=== PATIENT | female | born 1960 | race Caucasian/White ===

== ENCOUNTER → 2022-09-27 09:26 | Outpatient (BNVA) | payer OTHER, SELFPAY | PROVIDERS: PCP Internal Medicine; Visit Provider Nurse Practitioner Family | DX: R51.9 Headache, unspecified (principal); M54.2 Cervicalgia; G47.9 Sleep disorder, unspecified; G47.19 Other hypersomnia; R06.83 Snoring | CPT/HCPCS: 99202 ==

== ENCOUNTER → 2022-11-22 16:02 | Outpatient (REF) | payer OTHER, SELFPAY | LOC: HO.SL 16:02 | PROVIDERS: PCP Internal Medicine; Visit Provider Nurse Practitioner Family | DX: G47.19 Other hypersomnia (principal); G47.9 Sleep disorder, unspecified; R06.83 Snoring | CPT/HCPCS: 95806 ==

== ENCOUNTER → 2023-01-24 14:23 | Outpatient (BNVA) | payer OTHER, SELFPAY | PROVIDERS: PCP Internal Medicine; Visit Provider Nurse Practitioner Family | DX: G47.9 Sleep disorder, unspecified (principal); R51.9 Headache, unspecified; M54.2 Cervicalgia | CPT/HCPCS: 99212 ==

== ENCOUNTER → 2023-05-06 09:26 | Outpatient (BNVA) | payer OTHER, SELFPAY | PROVIDERS: PCP Internal Medicine; Visit Provider Nurse Practitioner Family | DX: R51.9 Headache, unspecified (principal); G47.9 Sleep disorder, unspecified; M54.2 Cervicalgia | CPT/HCPCS: 99212 ==

== ENCOUNTER 2023-08-20 09:08 | Outpatient (AMB) | payer OTHER, SELFPAY ==
--- NOTE | 2023-08-20 09:12 | A.OFFVIS_ITS ---
Intake Vital Signs 08/20/23 09:13 Height 5 ft 2 in Weight 197 lb BMI 36.0 BP 124/70 Blood Pressure Location Rt brachial Position Sitting Pulse 82 Pulse Source Pulse Oximeter Pulse Oximetry (%) 97 Oxygen Delivery Method Room Air Intake Visit Reasons: 3m follow up migraines-LVM Intake Note: Patient presents for 3month follow up migraines.Patient states not any better, I'm getting them more frequent at least 4 times a week. Allergies tramadol Adverse Reaction (Intermediate, Verified 08/20/23 09:15) Rash ibuprofen Adverse Reaction (Mild, Verified 08/20/23 09:15) Rash Medication List - Last Reconciled 08/20/23 by SHANIKA Gutiérrez acetaminophen (Tylenol) 650 mg PO Q6H PRN albuterol sulfate 90 mcg/actuation (ProAir HFA) 2 puffs inhalation Q4-6H PRN albuterol sulfate 2.5 mg inhalation Q4-6H PRN alcohol swabs (Alcohol Wipes) pad topical amitriptyline 10 mg PO BEDTIME 30 days amlodipine 5 mg PO DAILY atorvastatin 40 mg PO DAILY baclofen 10 - 20 mg (1 - 2 x 10 mg) PO BEDTIME 30 days blood sugar diagnostic (FreeStyle Lite Strips) As directed blood sugar diagnostic (FreeStyle Lite Strips) As directed blood-glucose meter (Freestyle [employer] meter) As directed buspirone 15 mg PO TID [id number]-pobxnorioloyq-icxt 50-300-40 mg 1 cap PO Q6H PRN calcium carbonate-vitamin D3 500 mg-15 mcg (600 unit) (Os-Freddie 500 + D3) 600 tabs PO BID cholecalciferol (vitamin D3) 25 mcg PO DAILY clonazepam 0.5 mg PO DAILY PRN diclofenac sodium 1% 2 grams topical DAILY PRN dulaglutide (Trulicity) 1.5 mg subcut QWEEK fluticasone propion-salmeterol 250-50 mcg/dose (Advair Diskus) 1 inh inhalation BID fluticasone propionate 50 mcg/actuation (Allergy Relief (fluticasone)) 2 sprays intranasal DAILY gabapentin 1,200 mg PO BID inhalational spacing device (Ranjith Aerosol [place] Enhancer spacer) As directed lancets (FreeStyle Lancets) As directed letrozole 2.5 mg PO DAILY levothyroxine 25 mcg PO DAILY losartan-hydrochlorothiazide 100-25 mg 1 tab PO DAILY melatonin 5 mg PO BEDTIME metformin 1,000 mg PO BID montelukast 10 mg PO BEDTIME omeprazole 20 mg PO DAILY quetiapine mg PO sertraline 100 mg PO DAILY HPI HPI Comments History of Present Illness Details 62-yr-old female presents for f/u visit. Pt denies any significant interval medical changes. She is having increased typical headaches- approx 4 times per week. The headache starts in the back of the neck and head, then moves into the front of the head. Feels like the neck and back of the head freezes up . Bending over exacerbates the headache. She is using a heating pad which helps some. In the past, PT never really helped- maybe made it worse. The baclofen helps some, but has run out. Amitriptyline- did not help at all. Currently on Gabapentin 600mg bid. In the past Fioricet tabs were helpful for headache. PFS Medical History (Reviewed 05/06/23 @ 09:39 by Michaela Gonzalez [facility]) Asthma Bipolar disorder Breast cancer Carpal tunnel syndrome Depression Diabetes Diabetic cataract of both eyes GERD (gastroesophageal reflux disease) HLD (hyperlipidemia) HTN (hypertension) IBS (irritable bowel syndrome) Lumbar degenerative disc disease Lumbar spinal stenosis OAB (overactive bladder) Osteoarthritis Venous insufficiency of both lower extremities Surgical History H/O endoscopy H/O Spinal surgery H/O left wrist surgery H/O left knee surgery H/O foot surgery H/O colonoscopy History of lumpectomy of left breast History of bladder suspension procedure History of back surgery H/O breast biopsy Family History Mother FH: CABG (coronary artery bypass surgery) Father Colon cancer Family/Other Myocardial infarct Social History Alcohol intake: current Alcohol intake frequency: holidays/special occasions only Patient Tobacco Use Status: Former Tobacco user Review of Systems Const All systems reviewed & are unremarkable except as noted in HPI and below Physical Exam Vital Signs: Last Vital Signs Pulse 82 08/20/23 09:13 BP 124/70 08/20/23 09:13 Pulse Ox 97 08/20/23 09:13 Oxygen Delivery Method Room Air 08/20/23 09:13 BMI result Body Mass Index 36.0 Const General: cooperative and no acute distress Orientation/consciousness: patient oriented x3 HEENT Head: Yes normocephalic Resp Effort & Inspection: normal respiratory effort and able to speak in complete sentences Neuro Other: Bilateral posterior cervical tightness and tenderness. General: patient oriented x3, gait normal and CN's II-XI intact bilaterally Cognition (Neuro): normal cognition Motor exam (neuro): 5/5 motor strength present throughout Psych Appearance: grossly normal Mental Status: mental status grossly normal Speech and movement: Normal speech and movement present Affect: normal affect Attitude: cooperative Thought process: Normal thought process present Thought content: Normal thought content present Insight: Good insight present (Psych) Judgement: Good judgement present (Psych) Assessment & Plan Assessment & Plan (1) Headache: Comment: likely cervicogenic, possibly TTH Code(s): R51.9 - Headache, unspecified (2) Cervicalgia: Code(s): M54.2 - Cervicalgia (3) TTH (tension-type headache): Code(s): G44.209 - Tension-type headache, unspecified, not intractable Plan For headache and cervicalgia- Check C-spine XR Will refer to pain management- for eval for trigger point inj, nerve herminio inj tx. My hold Amitriptyline 10mg qhs- ineffective Trial Sumatriptan 50-100mg prn. May use Fioricet sparingly for rescue for TTH. Continue Baclofen 20mg qhs, and may take 5-10mg qd prn. Continue warm pack x's 20 min prn. Future considerations- botox. ? For sleep- Continue to monitor sleep. ? f/u in 3-4 months or sooner prn Orders: Orders XR cervical spine w flex/ext Today M54.2 - Cervicalgia, R51.9 - Headache, unspecified XR cervical spine 4V Today M54.2 - Cervicalgia, R51.9 - Headache, unspecified Referrals Pain Management Referral M54.2 - Cervicalgia, R51.9 - Headache, unspecified Medications: New sumatriptan succinate (0.5 - 1 x 100 mg) 50 - 100 mg orally at onset of headache, may repeat in 2 hrs PRN; max 2 tabs per day or 4 tabs/week (may take with Ibuprofen) 30 days 12 tabs 6RF migraine headache opgvbdlcoy-soviahsusnurs-ndab 50-325-40 mg max 2 tabs per day or 4 tabs per week. 1 tab PO Q4H 30 days PRN 20 tabs 2RF tension type headache Coding Level of Care Code Est Pt Level 4 (26686) Diagnoses Headache R51.9 Cervicalgia M54.2 TTH (tension-type headache) G44.209
[2023-08-20 09:13] VITALS: BP 124/70; PULSE 82; O2SAT 97; BMI 36.0
== END 2023-08-20 09:57 | disposition home or self-care (01) ==
PROVIDERS: PCP Internal Medicine; Visit Provider Nurse Practitioner Family
DX: G44.209 Tension-type headache, unspecified, not intractable (principal); M54.2 Cervicalgia
CPT/HCPCS: 99213

== ENCOUNTER → 2023-08-20 09:08 | Outpatient (BNVA) | payer OTHER, SELFPAY | PROVIDERS: PCP Internal Medicine; Visit Provider Nurse Practitioner Family | DX: G44.209 Tension-type headache, unspecified, not intractable (principal); M54.2 Cervicalgia | CPT/HCPCS: 99212 ==

== ENCOUNTER 2023-08-30 13:05 | Outpatient (AMB) | payer OTHER, SELFPAY ==
--- NOTE | 2023-08-30 13:15 | A.OFFVIS_ITS ---
Intake Vital Signs 08/30/23 13:26 Height 5 ft 2 in Weight 197 lb BMI 36.0 BP 188/88 H Blood Pressure Location Lt brachial Position Sitting Respiration 20 Pulse 75 Pulse Source Pulse Oximeter Pulse Oximetry (%) 99 Oxygen Delivery Method Room Air Intake Visit Reasons: CERVICALGIA Allergies tramadol Adverse Reaction (Intermediate, Verified 08/30/23 13:11) Rash ibuprofen Adverse Reaction (Mild, Verified 08/30/23 13:11) Rash HPI HPI Comments History of Present Illness Details Gill is a very pleasant 63-year-old female who presents to the office today for evaluation management of her cervical neck pain. Patient reports that she has been suffering with this pain for greater than 1 year. She completed physical therapy almost 1 year ago without relief. She continues with home exercise program as instructed by physical therapy without improvement of her pain. Patient's pain today is reported as an 8/10, midline cervical area with some pain across her upper back/shoulders. Patient denies radiation of the pain to the wrist or hands. She denies shooting zapping or shocking pain. She describes the pain as throbbing and burning. Patient has tried nonsteroidal anti-inflammatory medication without relief. She takes Tylenol which also does not relieve her pain. She is on gabapentin for peripheral neuropathy which does not improve her neck pain. She is currently prescribed baclofen that she takes with minimal relief. She does report that she is also suffering with almost daily posterior headaches that she is followed by Neurology, they are questioning if this is related to her cervical spine. The headaches have been refractory to treatment so far. In terms of muscle damage condition is described as pulsing, throbbing, pounding, pinching, gripping, crushing, dull, sore, hurting, aching and heavy. Pain is negatively impacting patient's movement, activity and overall function. [facility] Medical History Asthma Bipolar disorder Breast cancer Carpal tunnel syndrome Depression Diabetes Diabetic cataract of both eyes GERD (gastroesophageal reflux disease) HLD (hyperlipidemia) HTN (hypertension) IBS (irritable bowel syndrome) Lumbar degenerative disc disease Lumbar spinal stenosis OAB (overactive bladder) Osteoarthritis Venous insufficiency of both lower extremities Surgical History H/O endoscopy H/O Spinal surgery H/O left wrist surgery H/O left knee surgery H/O foot surgery H/O colonoscopy History of lumpectomy of left breast History of bladder suspension procedure History of back surgery H/O breast biopsy Family History Mother FH: CABG (coronary artery bypass surgery) Father Colon cancer Family/Other Myocardial infarct Social History Alcohol intake: current Alcohol intake frequency: holidays/special occasions only Patient Tobacco Use Status: Former Tobacco user Review of Systems Const All systems reviewed & are unremarkable except as noted in HPI and below Physical Exam Vital Signs: Last Vital Signs Pulse 75 08/30/23 13:26 Resp 20 08/30/23 13:26 BP 188/88 H 08/30/23 13:26 Pulse Ox 99 08/30/23 13:26 Oxygen Delivery Method Room Air 08/30/23 13:26 BMI result Body Mass Index 36.0 General: awake, alert, oriented. Answers questions appropriately. Fully engaged in examination. Skin: warm, dry, intact HEENT: Normocephalic. Hearing intact. Cardiac: External chest normal in appearance. Respiratory: No cough, audible wheezing or stridor. Abdomen: without gross distension. MS: No obvious swelling or deformities. Able to transition from sit to stand unassisted. Ambulates with bilaterally normal heel strike and toe off Neurological: Oriented to person, place, time and situation. Thought process intact. No gait abnormalities appreciated. Psychiatric: Appropriate mood and affect. Good judgment and insight. Back/Spine/Pelvis Other: Cervical Spine: Visible inspection without gross abnormality Moderate tenderness throughout bilateral upper and middle trapezius muscles, left greater than right Tender to palpation over paraspinal muscles, left greater than right Tender to palpation over cervical vertebrae Patient with decreased cervical ROM in all planes with moderate pain upon bilateral lateral rotation. Left worse than right. Spurling compression test positive Elvey's tension test negative Lhermitte's test negative. BUE strength 5/5 DTR symmetrical and intact bilaterally. 2+ radial pulses. Results Reviewed Results Reviewed: 08/20/2023 XR CS: results viewed on patients phone during visit Chronic moderate disc space narrowing C5-6 with endplate spurring. Chronic moderately severe bilateral neural foraminal encroachment at C5-6 due to uncovertebral spurring Assessment & Plan Assessment & Plan (1) Cervical spondylosis: Code(s): M47.812 - Spondylosis without myelopathy or radiculopathy, cervical region (2) Headache: Comment: likely cervicogenic, possibly TTH Code(s): R51.9 - Headache, unspecified (3) Myofascial muscle pain: Code(s): M79.18 - Myalgia, other site Plan Gill is a very pleasant 63-year-old female who presented to the office today for evaluation management of her chronic neck pain. History, physical exam and provocative testing was consistent with cervical spondylosis and myofascial back pain. Lidocaine topical ointment, apply twice daily as needed. Patient has failed conservative therapy including nonsteroidal anti-inflammatory medication, physical therapy, home exercise program, prescription medications and muscle relaxers. Discussed options for treatment including diagnostic interventional testing, epidural steroid injections, peripheral nerve stimulation with Sprint, RFA and more permanent neuromodulation. Informational pamphlets provided. Will schedule for fluoroscopy guided bilateral diagnostic C4-C5 C6 medial branch blocks with local anesthetic. Plan for bilateral Sprint peripheral nerve stimulator if patient reports improvement in pain, mobility and function with diagnostic testing. All questions and concerns have been answered and patient agrees with the plan. Follow up after injections and sooner if needed. Medications: New lidocaine 5% apply to most painful area twice daily as needed for pain 1 appl topical BID PRN 50 grams 1RF pain Coding Level of Care Code New Pt Level 4 (66109) Diagnoses Cervical spondylosis M47.812 Headache R51.9 Myofascial muscle pain M79.18
[2023-08-30 13:26] VITALS: BP 188/88; PULSE 75; RESP 20; O2SAT 99; BMI 36.0
== END 2023-08-30 14:25 | disposition home or self-care (01) ==
PROVIDERS: PCP Internal Medicine; Visit Provider Registered Nurse Emergency
DX: M47.812 Spondylosis without myelopathy or radiculopathy, cervical region (principal); R51.9 Headache, unspecified; M79.18 Myalgia, other site
CPT/HCPCS: 99204

== ENCOUNTER → 2023-08-30 13:05 | Outpatient (BNVA) | payer OTHER, SELFPAY | PROVIDERS: PCP Internal Medicine; Visit Provider Registered Nurse Emergency ==

== ENCOUNTER 2023-12-19 15:19 | Outpatient (AMB) | payer OTHER, SELFPAY ==
--- NOTE | 2023-12-19 15:36 | A.OFFVIS_ITS ---
Intake Vital Signs 12/19/23 15:45 Height 5 ft 2 in Weight 193 lb 4 oz BMI 35.3 BP 124/80 Blood Pressure Location Rt brachial Position Sitting Pulse 72 Pulse Source Pulse Oximeter Pulse Oximetry (%) 97 Oxygen Delivery Method Room Air Intake Visit Reasons: 3 mnts f/u for Migraines/ Confirmed Intake Note: Patients present for 3 months f/u still having pain on back of her head and it causes a headache. Allergies tramadol Adverse Reaction (Intermediate, Verified 12/19/23 15:41) Rash ibuprofen Adverse Reaction (Mild, Verified 12/19/23 15:41) Rash Medication List - Last Reconciled 12/19/23 by SHANIKA Gutiérrez acetaminophen (Tylenol) 650 mg PO Q6H PRN albuterol sulfate 90 mcg/actuation (ProAir HFA) 2 puffs inhalation Q4-6H PRN albuterol sulfate 2.5 mg inhalation Q4-6H PRN alcohol swabs (Alcohol Wipes) pad topical amitriptyline 10 mg PO BEDTIME 30 days amlodipine 5 mg PO DAILY atorvastatin 40 mg PO DAILY baclofen 10 - 20 mg (1 - 2 x 10 mg) PO BEDTIME 30 days blood sugar diagnostic (FreeStyle Lite Strips) As directed blood sugar diagnostic (FreeStyle Lite Strips) As directed blood-glucose meter (Freestyle [employer] meter) As directed buspirone 15 mg PO TID pjpodfktng-qznuojwmfrxtq-owpt 50-325-40 mg 1 tab PO Q4H PRN 30 days calcium carbonate-vitamin D3 500 mg-15 mcg (600 unit) (Os-Freddie 500 + D3) 600 tabs PO BID cholecalciferol (vitamin D3) 25 mcg PO DAILY clonazepam 0.5 mg PO DAILY PRN diclofenac sodium 1% 2 grams topical DAILY PRN dulaglutide (Trulicity) 1.5 mg subcut QWEEK fluticasone propion-salmeterol 250-50 mcg/dose (Advair Diskus) 1 inh inhalation BID fluticasone propionate 50 mcg/actuation (Allergy Relief (fluticasone)) 2 sprays intranasal DAILY gabapentin 1,200 mg PO BID inhalational spacing device (Ranjith Aerosol [place] Enhancer spacer) As directed lancets (FreeStyle Lancets) As directed letrozole 2.5 mg PO DAILY levothyroxine 25 mcg PO DAILY lidocaine 5% 1 appl topical BID PRN losartan-hydrochlorothiazide 100-25 mg 1 tab PO DAILY melatonin 5 mg PO BEDTIME metformin 1,000 mg PO BID montelukast 10 mg PO BEDTIME omeprazole 20 mg PO DAILY quetiapine mg PO sertraline 100 mg PO DAILY sumatriptan succinate 50 - 100 mg orally at onset of headache, may repeat in 2 hrs PRN; max 2 tabs per day or 4 tabs/week (may take with Ibuprofen) 30 days HPI HPI Comments History of Present Illness Details 63-year-old female presents for f/u visi t. Pt denies any significant interval medical changes. She is having a daily back of the head headache When severe the headache moves into the frontal region. The headache starts in the back of the neck and head, then moves into the front of the head. Baclofen helps but not as much as it used to Patient did see [facility] pain management, and was advised to have cervical injections. Pain management did give her a lidocaine treatment which she found helpful. However patient states she never received a call. And she was thus referred to a different campus recruiting coordinator, Miguel in [place]. She has had cervical neck CT. And is scheduled to have a cervical injection at the end of December. [facility] Medical History (Updated 09/25/23 @ 11:50 by Gale Mares) Osteoarthritis Bipolar disorder IBS (irritable bowel syndrome) Venous insufficiency of both lower extremities Lumbar spinal stenosis Lumbar degenerative disc disease Diabetic cataract of both eyes OAB (overactive bladder) HLD (hyperlipidemia) HTN (hypertension) GERD (gastroesophageal reflux disease) Diabetes Depression Asthma Breast cancer Carpal tunnel syndrome Surgical History H/O endoscopy H/O Spinal surgery H/O left wrist surgery H/O left knee surgery H/O foot surgery H/O colonoscopy History of lumpectomy of left breast History of bladder suspension procedure History of back surgery H/O breast biopsy Family History Mother FH: CABG (coronary artery bypass surgery) Father Colon cancer Family/Other Myocardial infarct Social History Alcohol intake: current Alcohol intake frequency: holidays/special occasions only Patient Tobacco Use Status: Former Tobacco user Physical Exam Vital Signs: Last Vital Signs Pulse 72 12/19/23 15:45 BP 124/80 12/19/23 15:45 Pulse Ox 97 12/19/23 15:45 Oxygen Delivery Method Room Air 12/19/23 15:45 BMI result Body Mass Index 35.3 Const General: cooperative and no acute distress Orientation/consciousness: patient oriented x3 Resp Effort & Inspection: normal respiratory effort and able to speak in complete sentences Neuro General: patient oriented x3 Cranial nerves: Yes CN's II-XII intact bilaterally Cognition (Neuro): normal cognition Psych Appearance: grossly normal Mental Status: mental status grossly normal Speech and movement: Normal speech and movement present Affect: normal affect Attitude: cooperative Assessment & Plan Assessment & Plan (1) Headache: Comment: likely cervicogenic, possibly TTH Code(s): R51.9 - Headache, unspecified (2) TTH (tension-type headache): Code(s): G44.209 - Tension-type headache, unspecified, not intractable (3) Cervicalgia: Code(s): M54.2 - Cervicalgia (4) Cervical spondylosis: Code(s): M47.812 - Spondylosis without myelopathy or radiculopathy, cervical region Plan For headache and cervicalgia- Start topiramate 25-50 mg q.h.s. Will refill topical lidocaine order Continue Sumatriptan 50-100mg prn. May use Fioricet sparingly for rescue for TTH. Continue Baclofen 20mg qhs, and may take 5-10mg qd prn. Continue warm pack x's 20 min prn. Follow-up with physiatry as scheduled. Previous trials: Amitriptyline- ineffective Future considerations- botox. ? For sleep- Continue to monitor sleep. ? f/u in 4 months or sooner prn Medications: New topiramate 25 - 50 mg (1 - 2 x 25 mg) PO BEDTIME 30 days 60 tabs 3RF Refilled lidocaine 5% apply to most painful area twice daily as needed for pain 1 appl topical BID PRN 50 grams 1RF pain Discontinued amitriptyline Discontinued Reason: Doctor's Order 10 mg PO BEDTIME 30 days 30 tabs 3RF Coding Level of Care Code Est Pt Level 4 (88113) Diagnoses Headache R51.9 TTH (tension-type headache) G44.209 Cervicalgia M54.2 Cervical spondylosis M47.812
[2023-12-19 15:45] VITALS: BP 124/80; PULSE 72; O2SAT 97; BMI 35.3
== END 2023-12-19 16:22 | disposition home or self-care (01) ==
PROVIDERS: PCP Internal Medicine; Visit Provider Nurse Practitioner Family
DX: G44.209 Tension-type headache, unspecified, not intractable (principal); M47.812 Spondylosis without myelopathy or radiculopathy, cervical region; M54.2 Cervicalgia
CPT/HCPCS: 99214

== ENCOUNTER → 2023-12-19 15:19 | Outpatient (BNVA) | payer OTHER, SELFPAY | PROVIDERS: PCP Internal Medicine; Visit Provider Nurse Practitioner Family | DX: G44.209 Tension-type headache, unspecified, not intractable (principal); M54.2 Cervicalgia; M47.812 Spondylosis without myelopathy or radiculopathy, cervical region; Z79.899 Other long term (current) drug therapy | CPT/HCPCS: 99212 ==

== ENCOUNTER 2024-04-21 09:59 | Outpatient (AMB) | payer OTHER, SELFPAY ==
--- NOTE | 2024-04-21 10:04 | A.OFFVIS_ITS ---
Vital Signs 04/21/24 10:07 Height 5 ft 2 in Weight 192 lb BMI 35.1 BP 122/78 Blood Pressure Location Rt brachial Position Sitting Pulse 75 Pulse Source Pulse Oximeter Pulse Oximetry (%) 97 Oxygen Delivery Method Room Air Intake Visit Reasons: 4 mo f/u-LVM Intake Note: Patient presents 4 month follow. patient has no concerns Allergies tramadol Adverse Reaction (Intermediate, Verified 04/21/24 10:08) Rash Medication List - Last Reconciled 04/21/24 by SHANIKA Gutiérrez acetaminophen (Tylenol) 650 mg PO Q6H PRN albuterol sulfate 90 mcg/actuation (ProAir HFA) 2 puffs inhalation Q4-6H PRN albuterol sulfate 2.5 mg inhalation Q4-6H PRN alcohol swabs (Alcohol Wipes) pad topical amlodipine 5 mg PO DAILY atorvastatin 40 mg PO DAILY baclofen 10 - 20 mg (1 - 2 x 10 mg) PO BEDTIME 30 days blood sugar diagnostic (FreeStyle Lite Strips) As directed blood sugar diagnostic (FreeStyle Lite Strips) As directed blood-glucose meter (Freestyle [employer] meter) As directed buspirone 15 mg PO TID xacwqxxilw-spzecajcdltqd-uhnc 50-325-40 mg 1 tab PO Q4H PRN 30 days calcium carbonate-vitamin D3 500 mg-15 mcg (600 unit) (Os-Freddie 500 + D3) 600 tabs PO BID cholecalciferol (vitamin D3) 25 mcg PO DAILY clonazepam 0.5 mg PO DAILY PRN diclofenac sodium 1% 2 grams topical DAILY PRN dulaglutide (Trulicity) 1.5 mg subcut QWEEK fluticasone propion-salmeterol 250-50 mcg/dose (Advair Diskus) 1 inh inhalation BID fluticasone propionate 50 mcg/actuation (Allergy Relief (fluticasone)) 2 sprays intranasal DAILY gabapentin 1,200 mg PO BID inhalational spacing device (Ranjith Aerosol [place] Enhancer spacer) As directed lancets (FreeStyle Lancets) As directed letrozole 2.5 mg PO DAILY levothyroxine 25 mcg PO DAILY lidocaine 5% 1 appl topical BID PRN losartan-hydrochlorothiazide 100-25 mg 1 tab PO DAILY melatonin 5 mg PO BEDTIME metformin 1,000 mg PO BID montelukast 10 mg PO BEDTIME omeprazole 20 mg PO DAILY oxycodone-acetaminophen 5-325 mg 1 tab PO QID PRN quetiapine mg PO sertraline 100 mg PO DAILY sumatriptan succinate 50 - 100 mg orally at onset of headache, may repeat in 2 hrs PRN; max 2 tabs per day or 4 tabs/week (may take with Ibuprofen) 30 days topiramate 25 - 50 mg (1 - 2 x 25 mg) PO BEDTIME 30 days HPI Comments Details: 63-yr-old female presents for f/u visit. Pt denies any significant interval medical changes. Pt had cervical C6-C7 injections about a month ago, but does not feel that it is very helpful. 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 She continues to have neck pain, tightness, and occipital to frontal headaches, She is using ice packs prn. Baclofen does not seem to be helping. Using Gabapentin 600mg bid. She tried Topiramate 25mg prn, which did not help. She tried taking 50mg, which helped some. Sumatriptan helps some. Using Fioricet prn for more severe headache- which does help. Using 4-5 x's per month. [facility] Medical History (Updated 09/25/23 @ 11:50 by Gale Mares) Osteoarthritis Bipolar disorder IBS (irritable bowel syndrome) Venous insufficiency of both lower extremities Lumbar spinal stenosis Lumbar degenerative disc disease Diabetic cataract of both eyes OAB (overactive bladder) HLD (hyperlipidemia) HTN (hypertension) GERD (gastroesophageal reflux disease) Diabetes Depression Asthma Breast cancer Carpal tunnel syndrome Surgical History H/O endoscopy H/O Spinal surgery H/O left wrist surgery H/O left knee surgery H/O foot surgery H/O colonoscopy History of lumpectomy of left breast History of bladder suspension procedure History of back surgery H/O breast biopsy Family History Mother FH: CABG (coronary artery bypass surgery) Father Colon cancer Family/Other Myocardial infarct Social History Alcohol intake: current Alcohol intake frequency: holidays/special occasions only Patient Tobacco Use Status: Former Tobacco user Physical Exam Vital Signs: Last Vital Signs Pulse 75 04/21/24 10:07 BP 122/78 04/21/24 10:07 Pulse Ox 97 04/21/24 10:07 Oxygen Delivery Method Room Air 04/21/24 10:07 BMI result Body Mass Index 35.1 Const General: cooperative and no acute distress Orientation/consciousness: patient oriented x3 Resp Effort & Inspection: normal respiratory effort and able to speak in complete sentences Neuro Other: Bilateral cervical neck tightness and tenderness. Bilateral negative Spurling. General: patient oriented x3 Cranial nerves: Yes CN's II-XII intact bilaterally Cognition (Neuro): normal cognition Psych Appearance: grossly normal Mental Status: mental status grossly normal Speech and movement: Normal speech and movement present Affect: normal affect Attitude: cooperative Assessment & Plan Assessment & Plan (1) Cervical spondylosis: Code(s): M47.812 - Spondylosis without myelopathy or radiculopathy, cervical region Category: Medical (2) Headache: Comment: likely cervicogenic, possibly TTH Code(s): R51.9 - Headache, unspecified Category: Medical (3) Myofascial muscle pain: Code(s): M79.18 - Myalgia, other site Category: Medical (4) TTH (tension-type headache): Code(s): G44.209 - Tension-type headache, unspecified, not intractable Category: Medical Plan For headache and cervicalgia- Continue topiramate 50 mg- advised to take q.h.s. noty prn. Stop Sumatriptan 50-100mg prn. May use Fioricet sparingly for rescue for TTH. Stop Baclofen 20mg qhs, and may take 5-10mg qd prn- lost efficacy. Trial Cyclobenzaprine 10mg bid prn. Trial Celebrex 100mg bid. Today, pt notes that she does not have an allergy to Ibuprofen- never had a rash, just GI upset. And has recently taken Advil w/o s/e. Continue ice or warm pack x's 20 min prn. Follow-up with physiatry/neuro-surgery as scheduled. Previous trials: Amitriptyline- ineffective Future considerations- botox. ? For sleep- Continue to monitor sleep. ? f/u in 6 months or sooner prn Medications: New cyclobenzaprine 10 mg PO BID 30 days PRN 60 tabs 3RF muscle spasm topiramate 50 mg PO BEDTIME 90 days 90 tabs 1RF celecoxib (Celebrex) 100 mg PO BID 30 days 60 caps 3RF Changed From gabapentin 1,200 mg PO BID To gabapentin 600 mg PO BID Refilled yctwxfonwi-apswsgocerhxe-xymq 50-325-40 mg max 2 tabs per day or 4 tabs per week. 1 tab PO Q4H 30 days PRN 20 tabs 3RF tension type headache Discontinued baclofen and 1/2 - 1 tab prn neck pain Discontinued Reason: Doctor's Order 10 - 20 mg (1 - 2 x 10 mg) PO BEDTIME 30 days 90 tabs 3RF topiramate Discontinued Reason: Doctor's Order 25 - 50 mg (1 - 2 x 25 mg) PO BEDTIME 30 days 60 tabs 3RF sumatriptan succinate Discontinued Reason: Doctor's Order (0.5 - 1 x 100 mg) 50 - 100 mg orally at onset of headache, may repeat in 2 hrs PRN; max 2 tabs per day or 4 tabs/week (may take with Ibuprofen) 30 days 12 tabs 6RF migraine headache Coding Level of Care Code Est Pt Level 4 (97144) Diagnoses Cervical spondylosis M47.812 Headache R51.9 Myofascial muscle pain M79.18 TTH (tension-type headache) G44.209
[2024-04-21 10:07] VITALS: BP 122/78; PULSE 75; O2SAT 97; BMI 35.1
== END 2024-04-21 10:41 | disposition home or self-care (01) ==
PROVIDERS: PCP Internal Medicine; Visit Provider Nurse Practitioner Family
DX: M47.812 Spondylosis without myelopathy or radiculopathy, cervical region (principal); R51.9 Headache, unspecified; M79.18 Myalgia, other site; G44.209 Tension-type headache, unspecified, not intractable
CPT/HCPCS: 99214

== ENCOUNTER → 2024-04-21 09:59 | Outpatient (BNVA) | payer OTHER, SELFPAY | PROVIDERS: PCP Internal Medicine; Visit Provider Nurse Practitioner Family | DX: G44.209 Tension-type headache, unspecified, not intractable (principal); M79.18 Myalgia, other site; M47.812 Spondylosis without myelopathy or radiculopathy, cervical region; Z79.899 Other long term (current) drug therapy | CPT/HCPCS: 99212 ==

== ENCOUNTER 2025-03-19 10:37 | Outpatient (AMB) | payer OTHER, SELFPAY ==
--- NOTE | 2025-03-19 10:41 | MHC.OFFVIS ---
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 Accompanied by: Self / Same As Patient Allergies tramadol Adverse Reaction (Intermediate, Verified 03/19/25 10:44) Rash Medication List - Last Reconciled 03/19/25 by SHANIKA Gutiérrez albuterol sulfate 90 mcg/actuation (ProAir HFA) 2 puffs inhalation Q4-6H PRN albuterol sulfate 2.5 mg inhalation Q4-6H PRN alcohol swabs (Alcohol Wipes) pad topical amlodipine 5 mg PO DAILY atorvastatin 40 mg PO DAILY blood sugar diagnostic (FreeStyle Lite Strips) As directed blood sugar diagnostic (FreeStyle Lite Strips) As directed blood-glucose meter (Freestyle [employer] meter) As directed buspirone 15 mg PO TID umcfnfizpq-fhknxrphspumo-oxyw 50-325-40 mg 1 tab PO Q4H PRN 30 days calcium carbonate-vitamin D3 500 mg-15 mcg (600 unit) (Os-Freddie 500 + D3) 600 tabs PO BID celecoxib (Celebrex) 100 mg PO BID 30 days cholecalciferol (vitamin D3) 25 mcg PO DAILY clonazepam 0.5 mg PO DAILY PRN cyclobenzaprine 10 mg PO BID PRN 30 days diclofenac sodium 1% 2 grams topical DAILY PRN dulaglutide (Trulicity) 1.5 mg subcut QWEEK fluticasone propion-salmeterol 250-50 mcg/dose (Advair Diskus) 1 inh inhalation BID inhalational spacing device (Ranjith Aerosol [place] Enhancer spacer) As directed lancets (FreeStyle Lancets) As directed letrozole 2.5 mg PO DAILY levothyroxine 25 mcg PO DAILY lidocaine 5% 1 appl topical BID PRN losartan-hydrochlorothiazide 100-25 mg 1 tab PO DAILY melatonin 5 mg PO BEDTIME metformin 1,000 mg PO BID montelukast 10 mg PO BEDTIME quetiapine mg PO sertraline 100 mg PO DAILY topiramate 50 mg PO BEDTIME 90 days HPI Comments Details: 63-yr-old female presents for f/u visit. Pt denies any significant interval medical changes. Pt underwent cervical C6-C7 surgery approx [address] Barron at [place]. Pt reportsthe surgery has helped her neck pain a little, still needs to apply warm/massaging compresses. Pt realizes it may take a full year to see full affect. For a while the headaches were better, but more recently they have returned again. She continues to have neck pain, tightness, and occipital to frontal headaches. She does not recall starting the Celebrex order. Cyclobenzaprine was not helpful, so she stopped it. She stopped both topiramate and gabapentin, felt it was not helping much. States Fioricet is very effective for more severe headache. [facility] Medical History (Updated 03/19/25 @ 16:41 by SHANIKA Gutiérrez) Osteoarthritis Bipolar disorder IBS (irritable bowel syndrome) Venous insufficiency of both lower extremities Lumbar spinal stenosis Lumbar degenerative disc disease Diabetic cataract of both eyes OAB (overactive bladder) HLD (hyperlipidemia) HTN (hypertension) GERD (gastroesophageal reflux disease) Diabetes Depression Asthma Breast cancer Carpal tunnel syndrome Surgical History (Updated 03/19/25 @ 10:45 by Joycelyn Antunez CMA) H/O neck surgery H/O endoscopy H/O Spinal surgery H/O left wrist surgery H/O left knee surgery H/O foot surgery H/O colonoscopy History of lumpectomy of left breast History of bladder suspension procedure History of back surgery H/O breast biopsy Family History Mother FH: CABG (coronary artery bypass surgery) Father Colon cancer Family/Other Myocardial infarct Social History Alcohol intake: current Alcohol intake frequency: holidays/special occasions only Patient Tobacco Use Status: Former Tobacco user Physical Exam Vital Signs: Last Vital Signs Pulse 79 03/19/25 10:42 BP 100/80 03/19/25 10:42 Pulse Ox 96 03/19/25 10:42 Oxygen Delivery Method Room Air 03/19/25 10:42 BMI result Body Mass Index 36.0 Const General: cooperative and no acute distress Orientation/consciousness: patient oriented x3 Resp Effort & Inspection: normal respiratory effort and able to speak in complete sentences Neuro Other: Bilateral cervical neck tightness and tenderness. Bilateral negative Spurling. DTRs dulledl throughout. General: patient oriented x3 and CN's II-XI intact bilaterally Cranial nerves: Yes CN's II-XII intact bilaterally Cognition (Neuro): normal cognition Motor exam (neuro): 5/5 motor strength present throughout Psych Appearance: grossly normal Mental Status: mental status grossly normal Speech and movement: Normal speech and movement present Affect: normal affect Attitude: cooperative Assessment & Plan Assessment & Plan (1) TTH (tension-type headache): Code(s): G44.209 - Tension-type headache, unspecified, not intractable Category: Medical Qualifiers: Headache chronicity pattern: episodic headache Intractability: not intractable Qualified Code(s): G44.219 - Episodic tension-type headache, not intractable (2) Headache: Comment: likely cervicogenic, possibly TTH Code(s): R51.9 - Headache, unspecified Category: Medical Qualifiers: Headache type: cervicogenic headache Qualified Code(s): G44.86 - Cervicogenic headache (3) Cervical spondylosis: Code(s): M47.812 - Spondylosis without myelopathy or radiculopathy, cervical region Category: Medical (4) Myofascial muscle pain: Code(s): M79.18 - Myalgia, other site Category: Medical Plan For headache and cervicalgia- Patient has stopped topiramate 50 mg- advised to take q.h.s. noty prn., gabapentin, cyclobenzaprine, baclofen. May use Fioricet sparingly for rescue for TTH. Trial tizanidine 2 mg tab- 1-2 tabs daily at bedtime- advised that when she has increased cervical muscle tightness, she may need to take this several days in a row to see full effect. Again trial Celebrex 100mg bid. Today, pt notes that she does not have an allergy to Ibuprofen- never had a rash, just GI upset. And has recently taken Advil w/o s/e. Continue ice or warm pack x's 20 min prn. Follow-up with physiatry/neuro-surgery as scheduled. Previous headache tx trials: Amitriptyline- ineffective. Previous anti spasmodic/muscle relaxant Tx trials: Cyclobenzaprine 10mg-ineffective. Baclofen 20mg- ineffective. Gabapentin 600 mg b.i.d.- ineffective. Future considerations- botox. ? For sleep- Continue to monitor sleep. ? f/u in 6 months or sooner prn Medications: New tizanidine 2 - 4 mg (1 - 2 x 2 mg) PO BEDTIME 30 days 60 tabs 3RF Refilled celecoxib (Celebrex) 100 mg PO BID 30 days 60 caps 6RF Discontinued cyclobenzaprine Discontinued Reason: Doctor's Order 10 mg PO BID 30 days PRN 60 tabs 3RF muscle spasm topiramate Discontinued Reason: Doctor's Order 50 mg PO BEDTIME 90 days 90 tabs 1RF Coding Level of Care Code Est Pt Level 4 (72223) Diagnoses Episodic tension-type headache, not intractable G44.219 Headache chronicity pattern: episodic headache Intractability: not intractable Cervicogenic headache G44.86 Headache type: cervicogenic headache Cervical spondylosis M47.812 Myofascial muscle pain M79.18
[2025-03-19 10:42] VITALS: BP 100/80; PULSE 79; O2SAT 96; BMI 36.0
--- OUTSIDE RECORDS SUMMARY | 2025-03-19 11:45 | XMS_ITS ---
[facility] Name [facility] Organization Unknown History of Medication Use Medication Directions Dispensed Refills Start Date End Date Stat solifenacin (VESICARE) 5 mg tablet Take 1 tablet (5 mg total) by mouth 1 (one) time each day. Swallow tablet whole; do not crush, chew, or split. 02/19/2025 active diclofenac (VOLTAREN) 1 % topical gel APPLY 1 G TOPICALLY TWICE A DAY 02/08/2025 active atorvastatin (LIPITOR) 80 mg tablet TAKE 1 TABLET BY MOUTH EVERY DAY 02/01/2025 active cetirizine (ZyrTEC) 10 mg tablet Take 1 tablet (10 mg total) by mouth 1 (one) time each day. 02/01/2025 active budesonide (Pulmicort Flexhaler) 90 mcg/actuation inhaler Inhale 1 puff by mouth 2 (two) times a day. 01/13/2025 active montelukast (SINGULAIR) 10 mg tablet TAKE 1 TABLET BY MOUTH EVERYDAY AT BEDTIME 12/28/2024 active albuterol HFA (PROAIR HFA ; PROVENTIL HFA ; VENTOLIN HFA) 90 mcg/actuation inhaler Inhale 2 puffs by mouth every 4 (four) hours if needed for wheezing. 12/25/2024 active amLODIPine (NORVASC) 5 mg tablet Take 1 tablet (5 mg total) by mouth 1 (one) time each day. 12/25/2024 active levothyroxine (SYNTHROID, LEVOTHROID) 25 mcg tablet Take 1 tablet (25 mcg total) by mouth 1 (one) time each day. 12/25/2024 active losartan-hydroCHLOROthi azide (HYZAAR) 100-25 mg per tablet Take 1 tablet by mouth 1 (one) time each day. 12/25/2024 active aluminum-magnesium hydroxide-simethicone (MAALOX) 200-200-20 mg/5 mL suspension Take 30 mL by mouth 4 (four) times a day (before meals and nightly). 12/15/2024 active pantoprazole (PROTONIX) 40 mg EC tablet Take 1 tablet (40 mg total) by mouth 2 (two) times a day. Take thyroid medication in early am. Then take the protonix on empty stomach, wait 30 mins and then eat to activate the medication- before breakfast and supper 12/15/2024 active nystatin (MYCOSTATIN) 100,000 unit/gram powder Apply topically 2 (two) times a day. As needed for candidal skin infection. 11/17/2024 active dulaglutide (Trulicity) 3 mg/0.5 mL pen injector injection Inject 0.5 mL (3 mg total) under the skin every 7 (seven) days. 11/13/2024 active QUEtiapine (SEROquel) 50 mg tablet Take 1 tablet (50 mg total) by mouth at bedtime. 07/21/2024 active busPIRone (BUSPAR) 15 mg tablet Take 1 Tablet by mouth 3 times daily. 06/24/2024 active docusate sodium (COLACE) 100 mg capsule Take 1 capsule (100 mg total) by mouth if needed. 05/10/2024 active betamethasone valerate (VALISONE) 0.1 % ointment Apply to affected area twice daily for 2 weeks 05/07/2024 active melatonin 5 mg tablet, sublingual Take 1 tablet by mouth at bedtime as needed. 04/22/2024 active cholecalciferol (VITAMIN D-3) 25 mcg (1,000 unit) tablet TAKE 1 TABLET BY MOUTH EVERY DAY 02/27/2024 active metFORMIN (GLUCOPHAGE) 500 mg tablet TAKE 2 TABLETS BY MOUTH TWICE A DAY WITH MEALS 02/27/2024 active albuterol 2.5 mg /3 mL (0.083 %) nebulizer solution INHALE THE CONTENTS OF 1 VIAL VIA NEBULIZER EVERY 4-6 HOURS NEEDED FOR WHEEZING 09/25/2023 active butalbital-acetaminophe n-caffeine (FIORICET, ESGIC) 50-325-40 mg per tablet Take 1 Tablet by mouth every 6 hours as needed for Headaches. 02/06/2023 active FreeStyle Lancets 28 gauge lancets USE TO CHECK BLOOD SUGARS THREE TIMES DAILY 08/31/2022 active sertraline (ZOLOFT) 100 mg tablet Take 1 tablet (100 mg total) by mouth 1 (one) time each day. 08/27/2022 active calcium carbonate 1,500 mg (600 mg elemental calcium) tablet TAKE 1 TABLET BY MOUTH 2 TIMES A DAY WITH MEALS. 06/21/2022 active clonazePAM (KlonoPIN) 0.5 mg tablet as needed. 09/06/2021 active celecoxib (CeleBREX) 100 mg capsule Take 1 Capsule by mouth 2 times daily. active cyclobenzaprine (FLEXERIL) 10 mg tablet Take 1 Tablet by mouth 3 times daily as needed. active ipratropium (ATROVENT) 21 mcg (0.03 %) nasal spray 2 Sprays by Nasal route every 12 hours. active multivitamin tablet Take 1 tablet by mouth 1 (one) time each day. active topiramate (TOPAMAX) 50 mg tablet Take 1 Tablet by mouth 2 times daily. active Problems Problem Status Onset Date Problem Type Date of Resolution Source Carpal tunnel syndrome active 2017-08-29 ProblemAct [facility] Hypothyroidism active 2018-08-20 [facility]Act [facility] IBS (irritable bowel syndrome) active 2011-02-28 ProblemAct [facility] Asthmatic bronchitis , chronic ([facility] V24, [facility] V28) active 2014-08-23 ProblemAct [facility] Incontinence active 2024-08-04 ProblemAct [facility] Vitamin D deficiency active 2015-10-02 ProblemAct [facility] Cervical spondylosis active 2024-06-02 ProblemAct [facility] Diabetic cataract of both eyes ([facility] V24, [facility] V28) active 2021-05-30 ProblemAct [facility] Venous insufficiency of both lower extremities active 2020-01-05 ProblemAct [facility] Lumbar degenerative disc disease active 2021-04-20 ProblemAct [facility] DM (diabetes mellitus), type 2 with neurological complications ([facility] V24, [facility] V28) active 2020-01-05 ProblemAct [facility] Breast cancer, stage 1, left ([facility] V24, [facility] V28) active 2018-03-13 ProblemAct [facility] Chronic low back pain active 2007-03-11 ProblemAct [facility] Chest pain active 2022-05-16 ProblemAct [facility] Spinal stenosis of lumbar region active 2021-04-20 ProblemAct [facility] Hypercholesterolemia active 2006-08-29 ProblemAct [facility] Intestinal metaplasia of gastric mucosa active 2010-07-13 ProblemAct [facility] Microalbuminuria active 2020-01-05 ProblemAct [facility] OAB (overactive bladder) active 2020-01-05 ProblemAct [facility] Essential hypertension active 2017-04-26 ProblemAct [facility] Inferior myocardial infarction ([facility] V24, [facility] V28) active 2022-05-14 ProblemAct [facility] COVID active 2022-06-05 ProblemAct [facility] Osteoarthritis active 2010-08-07 ProblemAct [facility] Malignant neoplasm of overlapping sites of left breast in female, estrogen receptor positive ([facility] V24, [facility] V28) active 2019-08-17 ProblemAct [facility] GERD (gastroesophageal reflux disease) active 2020-01-05 ProblemAct [facility] Bipolar disorder ([facility] V24, [facility] V28) active 2005-11-14 ProblemAct [facility] DM (diabetes mellitus), type 2 with renal complications ([facility] V24, [facility] V28) active 2016-11-07 ProblemAct [facility] Immunizations Vaccine Date Source Lot Number Status RSV, bivalent, protein subun it RSVpreF, 0.5mL, Preservative Free (Arexvy) 60yo and older 01/29/2025 [facility] [id number] completed Influenza trivalent, MDCK, 0 .5mL, preservative free (Flucelvax) 6mo and older 01/15/2025 [id number] completed Pneumococcal conjugate 21 va lent (CAPVAXIVE, PCV 21) 19yo and older 01/15/2025 [facility] [id number] completed Influenza Quadravalent, MDCK , 0.5ml, preservative free (Flucelvax) 6mo and older 08/20/2023 [id number] completed Td Tetanus diptheria (Tdvax) 7yo and older 04/26/2021 [facility] [id number] completed Influenza trivalent, 0.5mL, preservative free (Fluarix; FluLaval; Fluzone) ages 6mo and older (Afluria) 3 years and older 10/31/2016 [facility] [id number] completed Influenza trivalent, with pr eservative (Fluzone; Afluria) 6mo and older 10/31/2016 [facility] [id number] completed Pneumococcal polysaccharide 23 valent (Pneumovax 23) 2yo and older 02/13/2016 [facility] [id number] com pleted Influenza trivalent, 0.5mL, preservative free (Fluarix; FluLaval; Fluzone) ages 6mo and older (Afluria) 3 years and older 09/16/2015 [facility] [id number] completed Influenza trivalent, with pr eservative (Fluzone; Afluria) 6mo and older 09/16/2015 [facility] [id number] completed Influenza trivalent, with pr eservative (Fluzone; Afluria) 6mo and older 09/08/2013 [facility] [id number] completed Pneumococcal polysaccharide 23 valent (Pneumovax 23) 2yo and older 09/08/2013 [facility] [id number] com pleted Pneumococcal, Unspecified 09/08/2013 [facility] [id number] completed Influenza, Unspecified 08/18/2013 [facility] co mpleted Influenza trivalent, 0.5mL, preservative free (Fluarix; FluLaval; Fluzone) ages 6mo and older (Afluria) 3 years and older 07/28/2012 [facility] [id number] completed Influenza trivalent, with pr eservative (Fluzone; Afluria) 6mo and older 07/28/2012 [facility] [id number] completed Tdap Tetanus diptheria acell ular pertussis (Boostrix; Adacel) 7yo and older 01/17/2011 [facility] [id number] completed Influenza trivalent, 0.5mL, preservative free (Fluarix; FluLaval; Fluzone) ages 6mo and older (Afluria) 3 years and older 08/15/2005 [facility] completed Influenza trivalent, with pr eservative (Fluzone; Afluria) 6mo and older 08/15/2005 [facility] completed Td Tetanus diptheria (Tdvax) 7yo and older 08/15/2005 [facility] completed
--- OUTSIDE RECORDS SUMMARY | 2025-03-19 11:45 | XMS_ITS | Clinical Summary ---
Author Organization [facility] Address [address] [place] [address] Care Team Providers Care Sql Analyst Name Role Phone Hosea Galvan MD Primary Care Provider [phone] Allergies Active Allergy Reactions Criticality Noted Date Comments Ibuprofen 03/21/2018 Tramadol Rash Low 03/21/2018 Medications Medication Sig Dispensed Refills Start Date End Date Status omeprazole (PRILOSEC) 20 MG capsule Take 1 capsule (20 mg total) by mouth daily. 0 Active albuterol (PROVENTIL) (2.5 MG/3ML) 0.083% nebulizer solution Take 3 mL (2.5 mg total) by nebulization every 6 (six) hours as needed for wheezing. 0 Active fluticasone (FLOVENT DISKUS) 50 MCG/BLIST diskus inhaler Inhale 1 puff into the lungs 2 (two) times a day. 0 Active cholecalciferol (VITAMIN D3) 1000 units tablet Take 1 tablet (1,000 Units total) by mouth daily. 0 Active montelukast (SINGULAIR) 10 MG tablet Take 1 tablet (10 mg total) by mouth every night at bedtime. 0 Active simvastatin (ZOCOR) tablet 20 mg Take 2 tablets (40 mg total) by mouth every night at bedtime. 0 Active fluticasone-salmeterol (ADVAIR HFA) 230-21 MCG/ACT inhaler Inhale 2 puffs into the lungs 2 (two) times a day. 0 Active Albuterol Sulfate 108 (90 Base) MCG/ACT AEPB Inhale 2 puffs into the lungs every 4 (four) hours as needed. 0 Active losartan 50 MG TABS 2 tablet, hydroCHLOROthiazide 12.5 MG CAPS 1 capsule Take 1 tablet by mouth daily. 0 Active busPIRone (BUSPAR) 15 MG tablet Take 1 tablet (15 mg total) by mouth 3 (three) times a day. 0 Active sertraline (ZOLOFT) 100 MG tablet Take 125 mg by mouth daily. 0 Active clonazePAM (KLONOPIN) 1 MG tablet Take 1 tablet (1 mg total) by mouth daily. 0 Active metFORMIN (GLUCOPHAGE) tablet 500 mg Take 1 tablet (500 mg total) by mouth 2 (two) times a day with meals. 0 Active Dulaglutide (TRULICITY SC) Inject under the skin. 0 Active HYDROcodone-acetaminophe n (NORCO) 5-325 MG per tablet Take 1 tablet by mouth every 4 (four) hours as needed for pain. 60 tablet 0 2 Active letrozole (FEMARA) 2.5 MG tabletIndications:Malign ant neoplasm of overlapping sites of right breast in female, estrogen receptor positive (HCC) TAKE 1 TABLET BY MOUTH EVERY DAY 90 tablet 3 3 Active gabapentin (NEURONTIN) 600 MG tablet TAKE 1 TABLET BY MOUTH THREE TIMES A DAY 90 tablet 11 3 Active Calcium Carbonate 1500 (600 Ca) MG TABS TAKE 1 TABLET (600 MG TOTAL) BY MOUTH 2 TIMES A DAY WITH MEALS. 30 tablet 6 4 Active Active Problems Problem Noted Date Diagnosed Date Malignant neoplasm of overla pping sites of left breast in female, estrogen receptor positive 08/17/2019 Immunizations Name Administration Dates Next Due Covid-19 (Pfizer) Dilution Required 02/28/2021,0 02/06/2021 Family History Medical History Relation Name Comments Diabetes Brother Lawence Relation Name Status Comments Brother Lawence Alive Social History Tobacco Use Types Packs/Day Years Used Date Smoking Tobacco: Former Cigarettes 0.5 30 Smokeless Tobacco: Never Alcohol Use Standard Drinks/Week Comments No 0 (1 standard drink = 0.6 oz pur e alcohol) Sex and Gender Information Value Date Recorded Sex Assigned at Not on file Gender Identity Not on file Sexual Orientation Not on file Job Start Date Occupation Industry Not on file Not on file Not on file Last Filed Vital Signs Vital Sign Reading Time Taken Comments Blood Pressure 140/77 09/16/2024 10:17 AM EDT Pulse 78 09/16/2024 10:17 AM EDT Temperature 36.6 ??C (97.8 ??F) 09/16/2024 1 0:17 AM EDT Respiratory Rate - - Oxygen Saturation 97% 09/16/2024 10: 17 AM EDT Inhaled Oxygen Concentration - - Weight 87.9 kg (193 lb 12.8 oz) 024 10:17 AM EDT Height 157.5 cm (5' 2 ) 09/16/2024 10:1 7 AM EDT Body Mass Index 35.45 09/16/2024 10:17 AM EDT Plan of Treatment Health Maintenance Due Date Last Done Comments Hepatitis C Screening 1960 Depression Screening 1972 BMI Counseling 1978 Preventative Health Evaluation 1978 Shingrix-Zoster Vaccine (1 o f 2) 1979 Cervical Cancer Screening (Pap Smear) 1981 Colon Cancer Screening (Colonoscopy) 2005 Breast Cancer Screening (Mammogram) 2010 Pneumococcal Vaccine (3 of 3 - PCV) 02/12/2017 02/13/2016, 09/08/2013 Pneumococcal Vaccine (3 of 3 - PCV) 02/12/2017 02/13/2016, 09/08/2013 DTap / Tdap / Td (2 - Td or Tdap) 01/17/2021 01/17/2011 COVID-19 Vaccine (3 - Pfizer risk series) 03/28/2021 02/28/2021, 02/06/2021 Influenza Vaccine (#1) 2024 , 09/08/2013 RSV Adult > 60+ Yrs or (1 - 1-dose 75+ series) 2035 Hepatitis B Vaccines Aged Out No long er eligible based on patient's age to complete this topic RSV Ped < 20 months Aged Out No longe r eligible based on patient's age to complete this topic Care Teams Sql Analyst Relationship Specialty Start Date End Date Hosea Galvan MD [address] [place] [id number] PCP - General Internal Medicine 07/10/22
--- OUTSIDE RECORDS SUMMARY | 2025-03-19 11:46 | XMS_ITS | Clinical Summary ---
Author Organization [facility] Address [address] [place] [address] Phone Care Team Providers Care Home Help Aide Name Role Phone Hosea Galvan MD Primary Care Provider [phone] Allergies Active Allergy Reactions Criticality Noted Date Comments Tramadol Low 01/09/2014 Other Reaction(s): Rash/Dermatitis Medications blood-glucose meter (FREESTYLE LITE METER MISC) E11.29. Use to check blood sugar daily for DM 11/28/19 23 Active FREESTYLE LANCETS MISC USE TO CHECK BLOOD SUGARS THREE TIMES DAILY 07/28/20 24 Active blood sugar diagnostic (FreeStyle Lite Strips) test strip USE TO CHECK BLOOD SUGARS THREE TIMES DAILY 08/31/20 22 Active albuterol 2.5 mg /3 mL (0.083 %) nebulizer solution INHALE THE CONTENTS OF 1 VIAL VIA NEBULIZER EVERY 4-6 HOURS NEEDED FOR WHEEZING 09/25/20 23 Active busPIRone (BUSPAR) 15 mg tablet Take 1 Tablet by mouth 3 times daily. 06/24/20 24 Active butalbital-acet aminophen-caffe ine (FIORICET, ESGIC) 50-325-40 mg per tablet Take 1 Tablet by mouth every 6 hours as needed for Headaches. 02/07/20 23 Active celecoxib (CeleBREX) 100 mg capsule Take 1 Capsule by mouth 2 times daily. Active cholecalciferol (VITAMIN D-3) 25 mcg (1,000 unit) tablet TAKE 1 TABLET BY MOUTH EVERY DAY 02/27/20 24 Active clonazePAM (KlonoPIN) 0.5 mg tablet as needed. 09/06/20 21 Active calcium carbonate 1,500 mg (600 mg elemental calcium) tablet TAKE 1 TABLET BY MOUTH 2 TIMES A DAY WITH MEALS. 06/21/20 22 Active cyclobenzaprine (FLEXERIL) 10 mg tablet Take 1 Tablet by mouth 3 times daily as needed. Active docusate sodium (COLACE) 100 mg capsule Take 1 capsule (100 mg total) by mouth if needed. 05/10/20 24 Active ipratropium (ATROVENT) 21 mcg (0.03 %) nasal spray 2 Sprays by Nasal route every 12 hours. Active melatonin 5 mg tablet, sublingual Take 1 tablet by mouth at bedtime as needed. 04/22/20 24 Active metFORMIN (GLUCOPHAGE) 500 mg tablet TAKE 2 TABLETS BY MOUTH TWICE A DAY WITH MEALS 02/27/20 24 Active QUEtiapine (SEROquel) 50 mg tablet Take 1 tablet (50 mg total) by mouth at bedtime. 07/21/20 24 Active sertraline (ZOLOFT) 100 mg tablet Take 1 tablet (100 mg total) by mouth 1 (one) time each day. 08/27/20 22 Active topiramate (TOPAMAX) 50 mg tablet Take 1 Tablet by mouth 2 times daily. Active nystatin (MYCOSTATIN) 100,000 unit/gram powderIndicatio ns:Candidal skin infection Apply topically 2 (two) times a day. As needed for candidal skin infection. 60 g 11/17/20 24 025 Active pantoprazole (PROTONIX) 40 mg EC tablet Take 1 tablet (40 mg total) by mouth 2 (two) times a day. Take thyroid medication in early am. Then take the protonix on empty stomach, wait 30 mins and then eat to activate the medication- before breakfast and supper 60 each 11 12/15/19 25 Active levothyroxine (SYNTHROID, LEVOTHROID) 25 mcg tablet Take 1 tablet (25 mcg total) by mouth 1 (one) time each day. 90 tablet 12/25/19 25 Active amLODIPine (NORVASC) 5 mg tablet Take 1 tablet (5 mg total) by mouth 1 (one) time each day. 90 tablet 12/25/19 25 Active albuterol HFA (PROAIR HFA ; PROVENTIL HFA ; VENTOLIN HFA) 90 mcg/actuation inhaler Inhale 2 puffs by mouth every 4 (four) hours if needed for wheezing. 6.7 g 12/25/19 25 Active losartan-hydroC HLOROthiazide (HYZAAR) 100-25 mg per tablet Take 1 tablet by mouth 1 (one) time each day. 90 tablet 12/25/19 25 Active montelukast (SINGULAIR) 10 mg tablet TAKE 1 TABLET BY MOUTH EVERYDAY AT BEDTIME 90 tablet 12/28/19 25 Active budesonide (Pulmicort Flexhaler) 90 mcg/actuation inhaler Inhale 1 puff by mouth 2 (two) times a day. 1 each 2 01/13/20 25 026 Active atorvastatin (LIPITOR) 80 mg tablet TAKE 1 TABLET BY MOUTH EVERY DAY 90 tablet 1 02/02/20 25 Active cetirizine (ZyrTEC) 10 mg tablet Take 1 tablet (10 mg total) by mouth 1 (one) time each day. 90 tablet 1 02/02/20 25 Active FreeStyle Lancets 28 gauge lancetsIndicati ons:Type 2 diabetes mellitus with other diabetic kidney complication ([facility] V24, [facility] V28) USE TO CHECK BLOOD SUGARS THREE TIMES DAILY 300 each 3 02/06/20 25 Active diclofenac (VOLTAREN) 1 % topical gel APPLY 1 G TOPICALLY TWICE A DAY 50 g 1 02/09/20 25 Active omega 7-ghu-bsu-fish oil (Fish OiL) 1,000 (120-180) mg capsule Active multivitamin tablet Take 1 tablet by mouth 1 (one) time each day. Active solifenacin (VESICARE) 5 mg tabletIndicatio ns:Overactive bladder Take 1 tablet (5 mg total) by mouth 1 (one) time each day. Swallow tablet whole; do not crush, chew, or split. 30 each 2 02/20/20 25 025 Active dulaglutide (Trulicity) 4.5 mg/0.5 mL pen injector injectionIndica tions:Type 2 diabetes mellitus with other diabetic kidney complication, without long-term current use of insulin ([facility] V24, [facility] V28) Use 4.5mg once weekly 2 mL 6 03/15/20 25 Active betamethasone valerate (VALISONE) 0.1 % ointment Apply to affected area twice daily for 2 weeks 05/07/20 24 025 Discontinued(T herapy completed) dulaglutide (Trulicity) 3 mg/0.5 mL pen injector injection Inject 0.5 mL (3 mg total) under the skin every 7 (seven) days. 6 mL 2 11/13/20 24 025 Discontinued aluminum-magnes ium hydroxide-simet hicone (MAALOX) 200-200-20 mg/5 mL suspension Take 30 mL by mouth 4 (four) times a day (before meals and nightly). 769 mL 11 12/15/19 25 025 Discontinued(I neffective) Active Problems Problem Noted Date Diagnosed Date Incontinence 08/04/2024 Cervical spondylosis 06/02/2024 Overview (09/28/2024): Last Assessment & Plan: Ms. Mtz is here for second postop visit since a C5-6 ACDF with plating on 07/23/2024. She describes some achiness in the mid to lower cervical area particularly in the right paraspinal muscles to the trapezius but, overall, has had tremendous improvement in her preoperative symptoms. She denies numbness or tenderness at the incision and has had no issues swallowing. On exam, her incision is well-healed, cervical rotation is 75 degrees bilaterally. There is no step-off or deformity of the cervical spine, she is mildly tender at C6 and along the right trapezius. Strength is 5/5 to confrontational testing, sensation to light touch intact, gait is steady, there are no myelopathic findings. Review of the cervical spine AP/lateral and flexion/extension x-rays from today show the graft to be well-positioned with blurring of the graft-endplate margins while the plate and screws are intact. There is no instability. Ms. Mtz is doing quite well and does not need postop physical therapy. I recommended applying heat over the right side of her neck, then using her rolling massager then applying heat if necessary. I believe the knots in tenderness will resolve as she becomes more active and continues her daily stretching program. She is welcome to follow-up with us if things do not improve otherwise, we will see her back at 1 year from surgery with x-rays to assess the fusion. COVID 06/05/2022 Overview (09/28/2024): Positive home test 06/03/22. Chest pain 05/16/2022 Overview (09/28/2024): Last Assessment & Plan: Patient has multiple risk factors for coronary disease. Not only the standard risk factors she also had radiation therapy to the chest for her ductal carcinoma. Patient deserves a stress echocardiogram to also assess for any regional wall motion abnormalities. I do not think the EKG shows a definite infarct I think it is relatively unchanged compared to previous studies. Given her symptoms of chest discomfort and her multiple risks including tobacco abuse family history hypertension hyperlipidemia and diabetes along with radiation therapy to the chest the patient deserves an evaluation for ischemia. The patient will be scheduled for stress echocardiogram she has intermediate risk for obstructive coronary disease. Inferior myocardial infarction (CMS/HCC V24, CMS /HCC V28) 05/14/2022 Diabetic cataract of both eyes (CMS/HCC V24, CMS /HCC V28) 05/30/2021 Lumbar degenerative disc disease 04/20/2021 Spinal stenosis of lumbar region 04/20/2021 DM (diabetes mellitus), type 2 with neurological complications (CMS/HCC V24, CMS/HCC V28) 01/05/2020 Overview (09/28/2024): Last Assessment & Plan: Continue Metformin 500 mg twice a day. Make sure to check blood sugars twice a day. Labs ordered to be done today. Discussed in detail diet to help control his blood sugars. Encouraged a low-fat, lean protein, high-fiber, low carbohydrate diet. Discussed avoiding sweets and junk food. Decrease the amount of bread, rice, pasta and potatoes. Regular exercise also encouraged to help with weight loss and provide cardiovascular benefit. Referral placed to endocrinology for evaluation for CGM. Recheck as scheduled with new PCP on March 01, 2022. GERD (gastroesophageal reflux disease) 0 Microalbuminuria 01/05/2020 OAB (overactive bladder) 01/05/2020 Venous insufficiency of both lower extremities 0 01/05/2020 Malignant neoplasm of overla pping sites of left breast in female, estrogen receptor positive ([facility] V24, [facility] V28) 08/17/2019 Hypothyroidism 08/20/2018 Overview (09/28/2024): Last Assessment & Plan: Continue levothyroxine 25 mcg daily. Labs ordered to be done today. Will adjust based on lab results if indicated. We will continue to monitor. Breast cancer, stage 1, left ([facility] V24, [facility]/ [facility] V28) 03/13/2018 Overview (09/28/2024): Grade 2 infilatrating carcinoma, ductal and lobular featurs, ER+, GA weak+, Ki- 67 high, HER-2 neg Lumpectomy 03/25/18 (Dr. Souza) Plan for adjuvent XRTand aromatase inhib; additional genetic testing led to recommendations of chemotherapy Dr. Yariel Shine PTN STAGE: pT1c, pN1a (sn) Port placed for chemo 05/06/18 4 cycles of docetaxel/cyclophosphamide rec and XRT, aromatase inhib XRT Dr. Patrice diaz at [facility] Carpal tunnel syndrome 08/29/2017 Essential hypertension 04/26/2017 Overview (09/28/2024): Dr. New - 05/02/17 - echocardiogram, renal ultrasound, 24-hour blood pressure; continue losartan 50 mg; follow-up 4 weeks 24-hour blood pressure 05/07/17 - average blood pressure 141/85; maximum blood pressure 180/119; 55% of systolic readings greater than 140 Normal echocardiogram 06/24/17 Last Assessment & Plan: Continue losartan-hydrochlorothiazide 100-25 mg 1 tab daily. Labs ordered to be done today. Will continue to monitor blood pressures in office at next visit. Discussed dietary strategies to help control his blood pressure. Encouraged low-fat, lean protein, high-fiber, low-cholesterol, low carbohydrate diet. Regular exercise and weight loss also encouraged to help with blood pressure control. Follow-up as scheduled on March 01, 2022 with new PCP. DM (diabetes mellitus), type 2 with renal complications ([facility] V24, [facility] V28) 11/07/2016 Overview (09/28/2024): Last Assessment & Plan: Continue Metformin 500 mg twice a day. Make sure to check blood sugars twice a day. Labs ordered to be done today. Discussed in detail diet to help control his blood sugars. Encouraged a low-fat, lean protein, high-fiber, low carbohydrate diet. Discussed avoiding sweets and junk food. Decrease the amount of bread, rice, pasta and potatoes. Regular exercise also encouraged to help with weight loss and provide cardiovascular benefit. Referral placed to endocrinology for evaluation for CGM. Recheck as scheduled with new PCP on March 01, 2022. Vitamin D deficiency 10/02/2015 Asthmatic bronchitis , chronic ([facility] V24, CMS /HCC V28) 08/23/2014 IBS (irritable bowel syndrome) 02/28/2011 Osteoarthritis 08/07/2010 Overview (09/28/2024): Lumbosacral Spine, Knees Intestinal metaplasia of gastric mucosa 07/13/20 Overview (09/28/2024): EGD on 02/2015 Chronic low back pain 03/11/2007 Overview (09/28/2024): right sciatica, L4L5 disc herniation Dr. Fong - 09/23/13 - physical therapy for 4-[address] Morel - planning for low back surgery 03/15/16 - facet injections Hypercholesterolemia 08/29/2006 Overview (09/28/2024): LDL 161 07/24 Last Assessment & Plan: Continue atorvastatin 40 mg daily. Labs ordered to be done today. Discussed diet, exercise and weight loss. We will continue to monitor. Bipolar disorder (CMS/[facility] V24, [facility] V28) 10/19 Overview (09/28/2024): [facility] Type Department Care Team Description 03/15/2025 9:20 AM EDT Office Visit Endocrinology [address] [phone] Zohra Ryan PA Type 2 diabetes mellitus with other diabetic kidney complication, without long-term current use of insulin ([facility] V24, [facility] V28) (Primary Dx); Hypothyroidism, unspecified type; Microalbuminuria; Essential hypertension 03/11/2025 10:30 AM EDT Procedure visit Urogynecology - [address] [phone] Maylin Fraga MD Hematuria, unspecified type (Primary Dx) 02/26/2025 Telephone Urogynecology [address] [place] [address] Catina Guardado MA [employer] visit 02/25/2025 Telephone Urogynecology [address] [place] [address] Darcie Cotton RN Results 02/24/2025 2:15 PM EDT - 02/24/2025 11:59 PM EDT Hospital Encounter Radiology Department - [address] [phone] Microscopic hematuria Discharge Disposition: Home or Self Care 02/19/2025 Telephone Urogynecology [address] [phone] Kailey Bajwa RN Microscopic hematuria; Results 02/17/2025 11:00 AM EDT Office Visit Urogynecology [address] [phone] Maylin Fraga MD Urge urinary incontinence (Primary Dx); Hematuria, unspecified type; OAB (overactive bladder); Stress incontinence; Status post insertion of sacral nerve stimulator; History of suburethral sling procedure 02/16/2025 [facility] [place] [phone] Hosea Galvan MD pt1 02/09/2025 9:45 AM EDT [facility] [address] [place], [place] [address] [phone] Bertha Spann CNM Encounter for annual routine gynecological examination (Primary Dx); Overactive bladder 02/09/2025 [facility] [place] [phone] Hosea Galvan MD pt-1 02/09/2025 Telephone Pediatrics - [facility] [address] [place], [place] [address] [phone] Hosea Galvan MD PT-1 02/09/2025 Telephone Pediatrics - [facility] [address] [place], [place] [address] [phone] Hosea Galvan MD pt-1 01/13/2025 10:13 AM EST - 01/13/2025 11:59 PM EST Hospital En[facility] [place] [phone] Pain of right hand Discharge Disposition: Home or Self Care 01/13/2025 9:30 AM EST Office Visit Personnel Psychologist - [facility] [address] [facility] [place] [phone] Hosea Galvan MD Pain of right hand (Primary Dx); Acquired hypothyroidism; Essential hypertension; Type 2 diabetes mellitus with other diabetic kidney complication, without long-term current use of insulin [place] [place] [facility] [place]); Mixed hyperlipidemia; Asthmatic bronchitis , chronic ([facility] [place], [facility] [place]); Hypokalemia from Last 3 Months Immunizations Name Administration Dates Next Due Influenza Quadravalent, MDCK , 0.5ml, preservative free (Flucelvax) 6mo and older 08/20/2023 Influenza trivalent, 0.5mL, preservative free (Fluarix; FluLaval; Fluzone) ages 6mo and older (Afluria) 3 years and older 10/31/2016,09/16/2015,07/28/2012,08/15 Influenza trivalent, MDCK, 0 .5mL, preservative free (Flucelvax) 6mo and older 01/15/2025 Influenza trivalent, with pr eservative (Fluzone; Afluria) 6mo and older 10/31/2016,09/16/2015,09/08/2013,07/28,08/15/2005 Influenza, Unspecified 08/18/2013 Pneumococcal conjugate 21 va lent (CAPVAXIVE, PCV 21) 19yo and older 01/15/2025 Pneumococcal polysaccharide 23 valent (Pneumovax 23) 2yo and older 02/13/2016,09/08/2013 Pneumococcal, Unspecified 09/08/2013 RSV, bivalent, protein subun it RSVpreF, 0.5mL, Preservative Free (Arexvy) 60yo and older 01/29/2025 Td Tetanus diptheria (Tdvax) 7yo and older 04/26/2021,08/15/2005 Tdap Tetanus diptheria acell ular pertussis (Boostrix; Adacel) 7yo and older 01/17/2011 Surgical History Surgery Date Site/Laterality Comments FOOT SURGERY 02/2013 PROCEDURE: HISTORICAL FOOT SURGERY; COMMENT: bunion surgery and tiffany R foot BLADDER SUSPENSION 11/26/2011 PROCEDURE: HISTORICAL BLADDER SUSPENSION; COMMENT: Dr Alvarado BACK SURGERY 03/16/2014 PROCEDURE: HISTORICAL BACK SURGERY; COMMENT: 2015 L4-5 fusion BREAST BIOPSY 03/07/2018 Left PROCEDURE: BX BREAST; PERC NEEDLE CORE W/IMAG GUID; COMMENT: Core biopsy WRIST SURGERY 07/09/2019 Left PROCEDURE: HISTORICAL WRIST SURGERY; COMMENT: & L thumb release BREAST LUMPECTOMY 03/25/2018 Left PROCEDURE: HISTORICAL BREAST LUMPECTOMY; COMMENT: & Leslie node biopsy, f/b RAD,CHEMO, & Letrozole COLONOSCOPY 06/01/2010 PROCEDURE: HISTORICAL COLONOSCOPY; COMMENT: Normal colon exam. Repeat 10 yrs CARPAL TUNNEL RELEASE 11/2019 Left PROCEDURE: HISTORICAL CARPAL TUNNEL REL UPPER GASTROINTESTINAL ENDOSCOPY 07/11/2010 PROCEDURE: GA UPPER GI ENDOSCOPY PERFORMED; COMMENT: Normal esophagus, erosive gastritis-biopsy:reactive gastropathy (healing ulcer) with focal intestinal metaplasia(HPylori-), normal duodenum. Repeat 07/11/2015 OTHER SURGICAL HISTORY 01/26/2013 PROCEDURE: HISTORY OTHER; COMMENT: Dr. Alvarado - Sacral nerve modulation electrode placement for urinary incontinence KNEE SURGERY 12/28/2010 Left PROCEDURE: HISTORICAL KNEE SURGERY COLONOSCOPY 06/14/2020 PROCEDURE: HISTORICAL COLONOSCOPY; COMMENT: negative FOOT SURGERY 06/16/2021 Right PROCEDURE: HISTORICAL FOOT SURGERY; COMMENT: repair 3rd toe contracture BACK SURGERY 08/09/2021 PROCEDURE: HISTORICAL BACK SURGERY; COMMENT: By Dr. Rafa Ramirez - L3-4 discectomy, arthrodesis and implantation cage through an anterolateral, retroperitoneal approach; L3-4 posterior lateral fusion; L3-4 pedicle screw fixation; osteoamp NECK SURGERY 07/23/2024 PROCEDURE: HISTORICAL NECK SURGERY; COMMENT: C5-6 ACDF, Dr. Barron NECK SURGERY 11/18/2023 - 11/17/2024 VENTRAL HERNIA REPAIR Left paramedian incisional hernia repair - probably from anterior-approach lumbar surgery. she believes mesh was used Medical History Medical History Date Comments Pure hypercholesterolemia 08/29/2006 DX:Pur e hypercholesterolemia; COMMENT: LDL 161 07/24 Lumbago 03/11/2007 DX:Lumbago Breast cancer, stage 1, left [place] [place], [facility] [place]) 03/13/2018 DX:Breast cancer, stage 1, l eft ([facility]) GERD (gastroesophageal reflux disease) 0 DX:GERD (gastroesophageal reflux disease) DM (diabetes mellitus), type 2 with renal complications ([facility] [place], [facility] [place]) 11/07/2016 DX:DM (diabetes mellitus), t ype 2 with renal complications ([facility]) Microalbuminuria 01/05/2020 DX:Microalbumin uria DM (diabetes mellitus), type 2 with neurological complications ([facility] [place], [facility] [place]) 01/05/2020 DX:DM (diabetes mellitus), t ype 2 with neurological complications ([facility]) Bipolar disorder ([facility] [place]2 4, [facility] [place]) 11/14/2005 DX:Bipolar disorder ([facility]); COMMENT: [address] OAB (overactive bladder) 01/05/2020 DX:OAB (overactive bladder) Presence of neurostimulator 01/05/2020 DX:P resence of neurostimulator; COMMENT: 2013 Bladder Stimulator Asthmatic bronchitis , chron ic ([facility] [place], [facility] [place]) 08/23/2014 DX:Asthmatic bronchitis , ch ronic ([facility]) Carpal tunnel syndrome 08/29/2017 DX:Carpal tunnel syndrome Osteoarthritis 08/07/2010 DX:Osteoarthriti s; COMMENT: Lumbosacral Spine, Knees Essential hypertension 04/26/2017 DX:Essent ial hypertension; COMMENT: Dr. New - 05/02/17 - echocardiogram, renal ultrasound, 24-hour blood pressure; continue losartan 50 mg; follow-up 4 weeks 24-hour blood pressure 05/07/17 - average blood pressure 141/85; maximum blood pressure 180/119; 55% of systolic readings greater than 140 Normal echocardiogram 06/24/17 Hypothyroidism 08/20/2018 DX:Hypothyroidis m IBS (irritable bowel syndrome) 02/28/2011 D X:IBS (irritable bowel syndrome) Intestinal metaplasia of gastric mucosa 07/13/20 10 DX:Intestinal metaplasia of gastric mucosa; COMMENT: EGD on 02/2015 Vitamin D deficiency 10/02/2015 DX:Vitamin D deficiency Venous insufficiency of both lower extremities 01/05/2020 DX:Venous insufficiency of b oth lower extremities Tobacco abuse 10/23/2011 DX:Tobacco abuse ; COMMENT: Quit Family History Medical History Relation Name Comments Heart attack Brother Colon cancer Father CABG Mother after surg eric Breast cancer Neg Hx Ovarian cancer Neg Hx Relation Name Status Comments Brother Father Mother Social History Tobacco Use Types Packs/Day Years Used Date Smoking Tobacco: Former Cigarettes 0.3 35 0 11/18/1975 - 11/18/2010 Smokeless Tobacco: Never Tobacco Cessation:Counseling Given: Not Answered Alcohol Use Standard Drinks/Week Comments Not Currently 0 (1 standard drink = 0.6 oz pur e alcohol) Comments No Sex and Gender Information Value Date Recorded Sex Assigned at Not on file Legal Sex Female 7:57 AM EST Gender Identity Not on file Sexual Orientation Not on file Obstetrics History Para Term AB IAB SAB Ectopic Multiple Livin g Live Births 2 2 1 1 2 2 Date Outcome GA Total Labor Labor/2nd/3rd Weight Sex Type Anes PTL Lisy A1 A5 Name Clin 978 2693 g (95 oz) M Vag-S pont Epidur al Livin g Delivery Location:[facility] 981 Term 2722 g (96 oz) F Vag-S pont Epidur al Livin g Delivery Location:[facility] Last Filed Vital Signs Vital Sign Reading Time Taken Comments Blood Pressure 104/64 03/15/2025 9:24 AM EDT C Pulse 80 03/15/2025 9:24 AM EDT Temperature 36.2 ??C (97.2 ??F) 03/15/2025 9:24 AM ED T Respiratory Rate - - Oxygen Saturation 96% 03/15/2025 9:24 AM EDT Inhaled Oxygen Concentration - - Weight 88.5 kg (195 lb) 03/15/2025 9:24 AM EDT Height 154.9 cm (5' 1 ) 03/15/2025 9:24 AM EDT Body Mass Index 36.84 03/15/2025 9:24 AM EDT Plan of Treatment Upcoming Encounters Date Type Department Care Team (Late st Contact Info) Description 03/29/2025 2:30 PM EDT Office Visit Urogynecology [address] [phone] Maylin Fraga MD [address] [facility] [address] [place] [address] 05/20/2025 9:20 AM EDT Office Visit [facility] [address] [facility] [address] [place] [phone] Mp Garcia MD [address] [facility] [address] [place] [address] 05/20/2025 10:00 AM EDT Office Visit [facility] Hematology Oncology [address] [place] [phone] Hitesh Terrazas MD [address] [place] [phone] 07/14/2025 4:00 PM EDT Office Visit Internal Medicine - [facility] [address] [place] [phone] Hosea Galvan MD [address] [place] [address] 10/05/2025 9:40 AM EST Office Visit Endocrinology - [place] [address] [place] [phone] Zohra Ryan PA [address] [place] [address] Health Maintenance Due Date Last Done Comments Diabetes: Annual Foot Exam 1970 Zoster Vaccines (1 of 2) 1979 COVID-19 Vaccine (3 - Pfizer risk series) 03/28/2021 02/28/2021, 02/06/2021 Depression Screening 10/26/2022 HIV Screening 10/26/2022 Social Influencers of Health Screening 10/26/2022 Diabetes: Blood Sugar Control Test (HGBA1C) 07/15/2025 01/15/2025, 11/12/2024, 07/03/2024, Additional history exists Diabetes: Annual Retina Eye Exam 01/14/2026 01/14/2025, 03/23/2024 Diabetes: Annual Urine Albumin-Creatinine Ratio (uACR) 01/15/2026 01/15/2025, 03/05/2024 Diabetes: Annual GFR (Glomerular Filtration Rate) 01/15/2026 01/15/2025, 07/03/2024, 07/03/2024 Hypertension/CHF/CAD Annual BMP Blood Test 01/15/2026 01/15/2025, 07/03/2024, 07/03/2024 Breast Cancer Screening 06/18/2026 06/18/20 24, 10/16/2022, 10/16/2022, Additional history exists Cervical Cancer Screening: HPV 03/22/2027 03/22/2022 Cholesterol Screening (Lipid Panel) 01/15/2030 01/15/2025, 07/03/2024, 07/03/2024 Colorectal Cancer Screening: Colonoscopy 06/14/2030 06/14/2020 DTaP,Tdap,and Td Vaccines (4 - Td or Tdap) 04/26/2031 04/26/2021, 01/17/2011, 08/15/2005 Hepatitis C Screening Completed 10/19/2013 Influenza Vaccine Completed 01/15/2025, , 10/31/2016, Additional history exists Pneumococcal Vaccine: 50+ Years Completed 01/15/2025, 02/13/2016, 09/08/2013, Additional history exists Pneumococcal Vaccine: Pediatrics (0 to 5 Years) and At-Risk Patients (6 to 64 Years) Completed 01/15/2025, 02/13/2016, 09/08/2013, Additional history exists RSV Immunization Adult Patients Completed 01/29/2025 HIB Vaccines Aged Out No longer eligi ble based on patient's age to complete this topic HPV Vaccines Aged Out No longer eligi ble based on patient's age to complete this topic Hepatitis A Vaccines Aged Out No long er eligible based on patient's age to complete this topic Hepatitis B Vaccines Aged Out No long er eligible based on patient's age to complete this topic IPV Vaccines Aged Out No longer eligi ble based on patient's age to complete this topic MMR Vaccines Aged Out No longer eligi ble based on patient's age to complete this topic Meningococcal ACWY Vaccine Aged Out N o longer eligible based on patient's age to complete this topic Meningococcal B Vaccine Aged Out No l onger eligible based on patient's age to complete this topic RSV Immunization Patients Under 20 months Aged Out No longer eligible based on patient's age to complete this topic Varicella Vaccines Aged Out No longer eligible based on patient's age to complete this topic Procedures Procedure Name Priority Date/Time Associated Diagnosis Comments US RETROPERITONEAL COMPLETE Routine 02/24/2025 2:34 PM EDT Microscopic hematuria URINALYSIS MICROSCOPIC ONLY Routine 02/17/2025 11:31 AM EDT Hematuria, unspecified type URINALYSIS MICROSCOPIC ONLY Routine 02/17/2025 11:31 AM EDT Hematuria, unspecified type CULTURE URINE Routine 02/17/2025 11:31 AM EDT Hematuria, unspecified type POC URINE AUTO W/O MICRO Routine 02/17/2025 11:27 AM EDT Hematuria, unspecified type LIPID PANEL WITH REFLEX TO DIRECT LDL Routine 01/15/2025 2:34 PM EST Mixed hyperlipidemia THYROID STIMULATING HORMONE WITH REFLEX TO FREE T4 AND FREE T3 Routine 01/15/2025 2:34 PM EST Acquired hypothyroidism COMPREHENSIVE METABOLIC PANEL Routine 01/15/2025 2:34 PM EST Essential hypertension RHEUMATOID FACTOR Routine 01/15/2025 2:3 4 PM EST Pain of right hand MICROALBUMIN CREATININE URINE RATIO Routine 01/15/2025 2:34 PM EST Type 2 diabetes mellitus with other diabetic kidney complication, without long-term current use of insulin (CMS/HCC V24, CMS/HCC V28) Microalbuminuria HEMOGLOBIN A1C Routine 01/15/2025 2:34 PM EST Type 2 diabetes mellitus with other diabetic kidney complication, without long-term current use of insulin (CMS/HCC V24, CMS/HCC V28) EXTERNAL DIABETIC RETINA EYE EXAM 01/14/2025 XR HAND 2 VIEWS RIGHT Routine 01/13/2025 10:20 AM EST Pain of right hand ANGELICA SCREENING DIGITAL Routine 06/18/2024 11:42 AM EDT Encounter for screening mammogram for malignant neoplasm of breast HM HPV Routine 03/22/2022 HM COLONOSCOPY Routine 06/14/2020 HEPATITIS C SCREENING Routine 10/19/2013 from Last 3 Months or Most Recently Relevant to Health Maintenance Results * US Retroperitoneal Complete (02/24/2025 2:34 PM EDT) Anatomical Region Laterality Modality Body Ultrasound 02/24/2025 5:00 PM EDT Impressions 02/24/2025 5:03 PM EDT Pelvic fullness of the left kidney. 1.2 x 0.9 x 1.0 cm left renal cyst. Bladder is suboptimally evaluated due to underdistention. -------- FINAL REPORT -------- Dictated By: Federica Trevizo Dictated Date: 02/24/2025 17:00 ET Assigned Physician: Federica Trevizo Reviewed and Electronically Signed By: Federica Trevizo Signed Date: 02/24/2025 17:03 ET Workstation ID: [id number] Transcribed By: Self Edit Transcribed Date: 02/24/2025 17:00 ET Narrative 02/24/2025 5:03 PM EDT US RETROPERITONEAL COMPLETE HISTORY: ??Hematuria, unknown cause. Prior study: CT abdomen pelvis 06/08/2013. FINDINGS: ??The right kidney measures 9.7 cm in length. The left kidney measures 10.8 cm in length. ??Both kidneys demonstrate normal echotexture. ??No hydronephrosis, solid masses, calculi, or perinephric collections are seen. 1.2 x 0.9 x 1.0 cm cyst lower pole left kidney. There is pelvic fullness of the left kidney. The bladder is suboptimally distended. Prevoid bladder volume measures 45 cc. Normal bilateral ureteral jets were seen in the bladder. Procedure Note Federica Trevizo MD - 02/24/2025 US RETROPERITONEAL COMPLETE HISTORY: Hematuria, unknown cause. Prior study: CT abdomen pelvis 06/08/2013. FINDINGS: The right kidney measures 9.7 cm in length. The left kidneymeasures 10.8 cm in length. Both kidneys demonstrate normal echotexture.No hydronephrosis, solid masses, calculi, or perinephric collections areseen. 1.2 x 0.9 x 1.0 cm cyst lower pole left kidney. There is pelvic fullness of the left kidney. The bladder is suboptimally distended. Prevoid bladder volume measures 45cc. Normal bilateral ureteral jets were seen in the bladder. IMPRESSION: Pelvic fullness of the left kidney. 1.2 x 0.9 x 1.0 cm left renal cyst. Bladder is suboptimally evaluated due to underdistention. -------- FINAL REPORT -------- Dictated By: Federica Trevizo Dictated Date: 02/24/2025 17:00 ET Assigned Physician: Federica Trevizo Reviewed and Electronically Signed By: Federica Trevizo Signed Date: 02/24/2025 17:03 ET Workstation ID: [id number] Transcribed By: Self Edit Transcribed Date: 02/24/2025 17:00 ET Maylin Fraga MD [facility] [place] Final Result * (ABNORMAL) Urinalysis microscopic only (02/17/2025 11:31 AM EDT) RBC, Urine 3.4 0 - 4 /HPF LAB URINALYSIS - AUTOMATED METHOD 02/17/2025 9:10 PM EDT [facility] WBC, Urine 0.8 0 - 4 /HPF LAB URINALYSIS - AUTOMATED METHOD 02/17/2025 9:10 PM EDT [facility] Squamous Epithelial, Urine 27 0 - 60 /LPF LAB URINALYSIS - AUTOMATED METHOD 02/17/2025 9:10 PM EDT [facility] Bacteria, Urine Negative Negative /HPF LAB URINALYSIS - AUTOMATED METHOD 02/17/2025 9:10 PM EDT [facility] Hyaline Casts, Urine 4.4(H) 0 - 3 /LPF LAB URINALYSIS - AUTOMATED METHOD 02/17/2025 9:10 PM EDT [facility] Urine Urine specimen obtained by clean catch procedure / Unknown Non-blood Collection / Unknown 02/17/2025 11:31 AM EDT 02/17/2025 11:31 AM EDT us Maylin Fraga MD LAB URINE ORDERABLES Final Resu lt [facility] [address] [place] [address], * Culture urine (02/17/2025 11:31 AM EDT) Culture, Urine No growth 02/19/2025 10:39 AM EDT [facility] Urine Urinary bladder structure / Unknown Non-blood Collection / Unknown 02/17/2025 11:31 AM EDT 02/17/2025 11:31 AM EDT us Maylin Fraga MD LAB MICROBIOLOGY - GENERAL ORDE RABLES Final Result [facility] [address] [place] [address], [place] [phone] * (ABNORMAL) POC Urine Auto W/O Micro (02/17/2025 11:27 AM EDT) [facility] Glucose UA POC Negative Negative, Trace mg/dL Bilirubin UA POC Small Negative, Small Ketones UA POC Trace Negative, Trace Specific Moran UA POC >=1.030 Blood UA POC Trace - Intact(A) Negative, Large PH UA POC 5.5 Protein UA POC 30(A) Negative, >=300 mg/dL Urobilinogen UA POC 0.2 E.U./dL mg/dL Nitrite UA POC Negative Negative Leukocytes UA POC Negative Negative Urine Urine specimen obtained by clean catch procedure / Unknown 02/17/2025 11:27 AM EDT us Maylin Fraga MD POINT OF CARE TEST ENTER/EDIT O RDERABLES Final Result * Thyroid stimulating hormone with reflex to free t4 and free t3 (01/15/2025 2:34 PM EST) [facility] TSH 2.06 0.40 - 4.00 mcIU/mL LAB CHEMISTRY METHOD 01/15/2025 5:46 PM EST [facility] Blood Venous blood specimen / Unknown Venipuncture / Unknown 01/15/2025 2:34 PM EST 01/15/2025 2:34 PM EST us Hosea Galvna MD LAB BLOOD ORDERABLES Final Resu lt Performing Organization Address City/[facility]/ZIP Co de Phone Number [facility] [address] [place] [address], [place] [phone] * (ABNORMAL) Lipid panel with reflex to direct LDL (01/15/2025 2:34 PM EST) Cholesterol 181 0 - 200 mg/dL LAB CHEMISTRY METHOD 01/15/2025 5:01 PM [facility] Triglycerides 204(H) 0 - 150 mg/dL LAB CHEMISTRY METHOD 01/15/2025 5:01 PM [facility] HDL 55 >=40 mg/dL LAB CHEMISTRY METHOD 01/15/2025 5:01 PM [facility] LDL Calculated 85 0 - 100 mg/dL LAB CHEMISTRY METHOD 01/15/2025 5:01 PM [facility] VLDL Cholesterol Freddie 40.8 mg/dL LAB CHEMISTRY METHOD 01/15/2025 5:01 PM [facility] Non HDL Chol. (LDL+VLDL) 126 <145 mg/dL LAB CHEMISTRY METHOD 01/15/2025 5:01 PM [facility] Chol/HDL Ratio 3.3 0.0 - 4.4 LAB CHEMISTRY METHOD 01/15/2025 5:01 PM [facility] Blood Venous blood specimen / Unknown Venipuncture / Unknown 01/15/2025 2:34 PM EST 01/15/2025 2:34 PM EST us Hosea Galvan MD LAB BLOOD ORDERABLES Final Resu lt [facility] [address] [place] [address], * Microalbumin creatinine urine ratio (01/15/2025 2:34 PM EST) Creatinine, Urine 142.0 mg/dL LAB CHEMISTRY METHOD 01/15/2025 6:05 PM [facility] Microalb, Ur 17.2 0.0 - 29.0 mg/L LAB CHEMISTRY METHOD 01/15/2025 6:05 PM [facility] Microalb/Creat Ratio 12 <30 mg/g creat LAB CHEMISTRY METHOD 01/15/2025 6:05 PM EST [facility] Urine Urine specimen obtained by clean catch procedure / Unknown Non-blood Collection / Unknown 01/15/2025 2:34 PM EST 01/15/2025 2:34 PM EST Zohra DUNAWAY LAB URINE ORDERABLES Final Resul t Performing Organization Address City/[facility]/ZIP Co de Phone Number [facility] [address] [place] [address], [place] [phone] * Rheumatoid factor (01/15/2025 2:34 PM EST) Rheumatoid Factor <10.0 <15.0 I Unit/mL LAB CHEMISTRY METHOD 01/15/2025 5:01 PM EST [facility] Blood Venous blood specimen / Unknown Venipuncture / Unknown 01/15/2025 2:34 PM EST 01/15/2025 2:34 PM EST us Hosea Galvan MD LAB BLOOD ORDERABLES Final Resu lt Performing Organization Address [facility] Co de Phone Number [facility] [address] [place] [address], [place] [phone] * (ABNORMAL) Hemoglobin A1c (01/15/2025 2:34 PM EST) Hemoglobin A1C 7.3(H) <6.5 % LAB CHEMISTRY METHOD 01/18/2025 9:36 PM EST [facility] Mean Bld Glu Estim. 163 mg/dL LAB CHEMISTRY METHOD 01/18/2025 9:36 PM EST [facility] Blood Venous blood specimen / Unknown Venipuncture / Unknown 01/15/2025 2:34 PM EST 01/15/2025 2:34 PM EST Zohra DUNAWAY LAB BLOOD ORDERABLES Final Resul t Performing Organization Address City/[facility] Co de Phone Number [facility] [address] [place] [address], [place] [phone] * (ABNORMAL) Comprehensive metabolic panel (01/15/2025 2:34 PM EST) Sodium 142 133 - 145 mmol/L LAB CHEMISTRY METHOD 01/15/2025 5:01 PM [facility] Potassium 3.3(L) 3.5 - 5.5 mmol/L LAB CHEMISTRY METHOD 01/15/2025 5:01 PM [facility] Chloride 106 96 - 110 mmol/L LAB CHEMISTRY METHOD 01/15/2025 5:01 PM [facility] CO2 27 21 - 32 mmol/L LAB CHEMISTRY METHOD 01/15/2025 5:01 PM [facility] Anion Gap 9 3 - 11 LAB CHEMISTRY METHOD 01/15/2025 5:01 PM [facility] Glucose 191(H) 70 - 100 mg/dL LAB CHEMISTRY METHOD 01/15/2025 5:01 PM [facility] BUN 15 5 - 25 mg/dL LAB CHEMISTRY METHOD 01/15/2025 5:01 PM [facility] Creatinine 0.93 0.50 - 1.10 mg/dL LAB CHEMISTRY METHOD 01/15/2025 5:01 PM [facility] eGFR 69 >=60 mL/min/1. 73m2 LAB CHEMISTRY METHOD 01/15/2025 5:01 PM [facility] Comment:Calculation based on the??Chronic Kidney Disease Epidemiology Collaboration (CKD-EPI) equation refit??without adjustment for race. BUN/Creatinine Ratio 16.1 LAB CHEMISTRY METHOD 01/15/2025 5:01 PM [facility] Calcium 9.3 8.5 - 10.5 mg/dL LAB CHEMISTRY METHOD 01/15/2025 5:01 PM [facility] AST (SGOT) 21 10 - 42 unit/L LAB CHEMISTRY METHOD 01/15/2025 5:01 PM [facility] ALT (SGPT) 34 10 - 60 unit/L LAB CHEMISTRY METHOD 01/15/2025 5:01 PM [facility] Alkaline Phosphatase 160(H) 42 - 121 unit/L LAB CHEMISTRY METHOD 01/15/2025 5:01 PM [facility] Total Protein 7.0 6.0 - 8.0 g/dL LAB CHEMISTRY METHOD 01/15/2025 5:01 PM EST [facility] Albumin 3.7 3.2 - 5.0 g/dL LAB CHEMISTRY METHOD 01/15/2025 5:01 PM [facility] Total Bilirubin 0.2 0.0 - 1.4 mg/dL LAB CHEMISTRY METHOD 01/15/2025 5:01 PM [facility] Blood Venous blood specimen / Unknown Venipuncture / Unknown 01/15/2025 2:34 PM EST 01/15/2025 2:34 PM EST Hosea Galvan MD LAB BLOOD ORDERABLES Final Resu lt [facility] [address] [place] [address], [place] [phone] * External Diabetic Retina Eye Exam Report (01/14/2025) Anatomical Region Laterality Modality Ultrasound us Provider [facility] US PROCEDURES Final Result * XR Hand 2 Views Right (01/13/2025 10:20 AM EST) Anatomical Region Laterality Modality Upper Extremities, Hand Right Radiogra phic Imaging 01/13/2025 4:04 PM EST Impressions 01/13/2025 4:06 PM EST No acute fracture or dislocation of the right hand. Degenerative osteoarthritic changes as above -------- FINAL REPORT -------- Dictated By: Jerry Vinson Dictated Date: 01/13/2025 16:04 ET Assigned Physician: Jerry Vinson Reviewed and Electronically Signed By: Jerry Vinson Signed Date: 01/13/2025 16:06 ET Workstation ID: [id number] Transcribed By: Self Edit Transcribed Date: 01/13/2025 16:04 ET Narrative 01/13/2025 4:06 PM EST HISTORY: hand pain TECHNIQUE: AP, lateral, and oblique radiographs of the right hand COMPARISON: None FINDINGS: No acute fracture or dislocation. ??There is moderate joint space narrowing at the DIP joints with subchondral sclerosis. ??Small osteophytes are present at the distal phalanges. ??Mild joint space narrowing at the base the thumb with subchondral sclerosis. Procedure Note Jerry Vinson MD - 01/13/2025 HISTORY: hand pain TECHNIQUE: AP, lateral, and oblique radiographs of the right hand COMPARISON: None FINDINGS: No acute fracture or dislocation. There is moderate joint space narrowingat the DIP joints with subchondral sclerosis. Small osteophytes arepresent at the distal phalanges. Mild joint space narrowing at the basethe thumb with subchondral sclerosis. IMPRESSION: No acute fracture or dislocation of the right hand. Degenerative osteoarthritic changes as above -------- FINAL REPORT -------- Dictated By: Jerry Vinson Dictated Date: 01/13/2025 16:04 ET Assigned Physician: Jerry Vinson Reviewed and Electronically Signed By: Jerry Vinson Signed Date: 01/13/2025 16:06 ET Workstation ID: [id number] Transcribed By: Self Edit Transcribed Date: 01/13/2025 16:04 ET us Hosea Galvan MD IMG XR PROCEDURES Final Result * ANGELICA SCREENING DIGITAL (06/18/2024 11:42 AM EDT) Anatomical Region Laterality Modality Mammography 06/18/2024 9:32 AM EDT Narrative 06/18/2024 11:42 AM EDT [facility] Diagnostic Imaging Department [address] [place] [address] Patient: ??LUIS M MTZ ?/Age/Sex: 1960 63 - F Unit#: ??[id number] ? Location/Status: ??SPDIMAM/REG CLI ? Mnemonic/Ordering Site: ??DIGSC/SPMAM Ordering Physician: ??MP GARCIA MD Angelica Screening Digital - 06/18/24 - [id number] Report Status:Signed EXAM: Angelica Screening Digital EXAM DATE AND TIME: 06/18/2024 10:20 AM HISTORY: ??Screening. Personal history of left breast carcinoma treated with lumpectomy in 2018 followed by radiation treatment. Biopsy of calcifications at the lumpectomy site in 2021 yielding benign pathology. COMPARISON: ??03/26/23, 10/16/22, 04/10/22, 04/06/21, 03/03/20 (outside studies) TECHNIQUE: Bilateral digital breast tomosynthesis was performed in the CC and MLO projections. Computer aided detection with PandaDoc 3D 3.1 was employed. TISSUE DENSITY: b. There are scattered areas of fibroglandular density. FINDINGS: Focal spiculated asymmetry in the retroareolar area of the left breast, with few coarse, dystrophic calcifications and thickening and retraction of the overlying skin is without significant change, consistent with the lumpectomy scar. A biopsy marker is also seen within the scar. No suspicious masses, grouped microcalcifications, or developing architectural distortion are seen. Few scattered microcalcifications are without significant change. The vascularity is unremarkable. IMPRESSION: Stable mammographic appearance of the breasts, including lumpectomy changes in the left breast. ??No evidence of malignancy is seen. A negative mammogram in the presence of a clinically suspicious palpable abnormality does not preclude the possibility of malignancy or alter the indications for biopsy. BI-RADS: ??Category 2: Benign RECOMMENDATION(S): 1: Routine screening mammogram BILATERAL in 1 year. Dictating Physician: ??PAYTON ARREOLA MD Electronically Signed by: ??PAYTON ARREOLA MD Dic Date/Time: ??06/18/24 1140 Sign date/Time: ??06/18/24 1142 Procedure Note Payton Arreola MD - 09/02/2024 [facility] Diagnostic Imaging Department [address] [place] [address] Patient: LONGLUIS M /Age/Sex: 1960 - 63 - F Unit#: [id number] [facility] Ordering Physician: MP GARCIA MD [facility] Screening Digital - 06/18/24 - [id number] Report Status:Signed EXAM: [facility] Screening Digital EXAM DATE AND TIME: 06/18/2024 10:20 AM HISTORY: Screening. Personal history of left breast carcinoma treatedwith lumpectomy in 2018 followed by radiation treatment. Biopsy ofcalcifications at the lumpectomy site in 2021 yielding benign pathology. COMPARISON: 03/26/23, 10/16/22, 04/10/22, 04/06/21, 03/03/20 (outsidestudies) TECHNIQUE: Bilateral digital breast tomosynthesis was performed in the CCand MLO projections. Computer aided detection with iCAD mobile mum AI 3D 3.1was employed. TISSUE DENSITY: b. There are scattered areas of fibroglandular density. FINDINGS: Focal spiculated asymmetry in the retroareolar area of the left breast,with few coarse, dystrophic calcifications and thickening and retraction ofthe overlying skin is without significant change, consistent with thelumpectomy scar. A biopsy marker is also seen within the scar. No suspicious masses, grouped microcalcifications, or developingarchitectural distortion are seen. Few scattered microcalcifications are withoutsignificant change. The vascularity is unremarkable. IMPRESSION: Stable mammographic appearance of the breasts, including lumpectomychanges in the left breast. No evidence of malignancy is seen. A negative mammogram in the presence of a clinically suspicious palpable abnormality does not preclude the possibility of malignancy or alter the indications for biopsy. BI-RADS: Category 2: Benign RECOMMENDATION(S): 1: Routine screening mammogram BILATERAL in 1 year. Dictating Physician: PAYTON ARREOLA MD Electronically Signed by: PAYTON ARREOLA MD Dic Date/Time: 06/18/24 1140 Sign date/Time: 06/18/24 1142 Result [facility] Mp Garcia MD IMG BI PROCEDURES Final Result * Cervical Cancer Screening: HPV (03/22/2022) [facility] Cervical Cancer Screening: HPV Negative, Abstracted [facility] [place] [employer] Final Result * Colonoscopy (06/14/2020) [facility] Colonoscopy No Interpretation , Abstracted Anatomical Region Laterality Modality Other [facility] [place] [employer] Final Result * Hepatitis C Screening (10/19/2013) [facility] Hepatitis C Screening Abstracted [facility] [place] [employer] Final Result from Last 3 Months or Most Recently Relevant to Health Maintenance Insurance [facility] Care Teams Home Help Aide Relationship Specialty Start Date End Date Hosea Galvan MD [address] [place] [id number] PCP - General Internal Medicine 08/02/21
--- OUTSIDE RECORDS SUMMARY | 2025-03-19 11:46 | XMS_ITS | Data Portability ---
Author Organization [place] - [facility] Address [address] [place] [id number] Care Team Providers Care Drug Safety Specialist Name Role Phone TONY CALIX Primary Care Provider [phone] Assessment Encounter Date Assessment Date Assessment LastModified by Organization Details LastModified Time 06/13/2022 06/13/2022 Overview/History :Lisa Keller IS A 61 YO FEMALE NEW TO . PT STATES THAT SHE HAS HAD CHEST PAIN. PT STATES SHE TESTED POSITIVE FOR COVID. ABOUT 2 WEEKS AGO. STILL CONGESTED IN THE CHEST. COUGH IS NON PRODUCTIVE. USED MUCINEX NO CHANGE. NO FEVER OR CHILLS. EATING AND DRINKING MOVING BOWEL AND BLADDER. NO SWELLING IN LEGS. SOB WITH SIGNIFICANT COUGH. USING THE INHALER TWICE ADAY. CHEST PAIN WITH THE COUGH. CHEST PAIN IS NOT ASSOCIATED WITH ACTIVITY. Exam: HEENT- UNREMARKABLE CVS- RRR WITHOUT RMG, TTP OF THE ANTERIOR CHEST NO PERIPHERAL EDEMA LUNGS- CTA BILATERALLY ABD- BENIGN NEURO- ALERT AND ORIENTED X 3 SKIN- WARM DRY AND INTACT Vital Signs: VSS DDx considered, but not limited to: ISCHEMIA PNA COSTOCHONDRITIS Work up/Results: CXR ORDERED Plan/Discussion: CHEST PAIN APPEARS TO BE MORE MUSCLUSKELETAL. WILL ORDER CXR TO EVALUATED. EKG UNREMARKABLE. PREDNISONE AND REFILL ALBUTEROL FOR NEBULIZER. DOXYCYCLINE TO COVER FOR PNA PRESUMED BY LENGTH AND PT HX OF BREAST CANCER IS CONCERNING. INCREASE FLUIDS AND REST. RTC PRN. FOLLOW UP WITH PCP. ALL QUESTIONS ANSWERED. TO THE ED IF WORSENS. Proper Personal Protective Equipment (PPE), including gloves, eye protection and masks were donned and doffed appropriately and all equipment cleaned using approved technique with germicidal disposable wipes prior to and after care of this patient according to [facility]'s infection prevention protocols. All the patient's medications were reviewed and updated in the patient record during today's visit. Please note the following changes:PREDNISONE DOXY, REFILE ALBUTEROL [email or web address] Not available 06/13/2022 17:15:38 Plan of Treatment Reminders Order Date Submit Date Provider Last Modified By Organization Details Last Modified Time Details Appointments None recorded. Lab None recorded. Referral None recorded. Procedures None recorded. Surgeries None recorded. Imaging XR, chest, 2 view 2021 [facility] (Central Scheduling Radiology), [address], [place], [address], 17:27:02 Medication Orders doxycycli ne hyclate 100 mg capsule 2021 [email or web address] [facility]/Pharmacy #[id number], [address] [place], [address], 13:21:53 prednison e 20 mg tablet 2021 [facility]/Pharmacy #[id number], [address] [place], [address], 17:16:36 albuterol sulfate concentra te 2.5 mg/0.5 mL solution for nebulizat ion 2021 [facility]/Pharmacy #[id number], [address] [place], [address], 17:16:36 Patient TargetsNo targets recorded. Patient Instructions Encounter Date Encounter Id Patient Instructions Last Modified By Organization Details Last Modified Time 06/13/2022 [id number] Thank you for yo ur visit with codesy today. We cannot always find the exact cause of your symptoms during your initial visit. Please follow up with your primary care provider or specialist within 12-24 hours within 24-48 hours to be rechecked or seek medical attention if your symptoms do not go away or get worse. If you develop any new or worsening symptoms and need after hours care, please go to nearest ER and/or call 911. If you have additional concerns or develop a change in your condition between 8am-10pm, please call [facility] at [phone] to help navigate your care. [email or web address] Not available 06/13/2022 16:50:42 Reason for Referral None Reported. Results Created Date Observation Date Name Description Value Unit Range Abnormal Flag Note LastModifiedBy Organization Detail LastModifiedTime 06/25/20 22 toni [email or web address] am No observ ation record ed. [email or web address] Not Available 2021 15:28:28 Result Notes None recorded. Procedures Surgical History Date Name Laterality Status Provider Name and Address Organization Details Recorded Time 06/13/20 ECG Interpretation - DH completed [facility] Reese [address], [place], [address], [place] [facility] 06/13/2022 17:10:12 Back Surgery completed [facility] Reese [address], [place], [address], [place] [facility] 06/13/2022 16:46:02 arthroscopy of foot completed [facility] Reese [address], [place], [address], [place] [facility] 06/13/2022 16:46:32 repair of hernia of anterior abdominal wall completed [facility] Reese [address], [place], [address], [place] [facility] 06/13/2022 16:46:51 Imaging Results Imaging Date Name Status LastModified by Organization Details LastModified Time 06/25/2022 electrocardiogram completed [email or web address] Informa tion not available 06/25/2022 15:28:28 Procedure Notes None recorded. Medical Equipment None Reported. Allergies Allergen ID Allergen Name Allergen Category Reaction Reaction Severity Criticality Documentation Date Start Date Code Code System Note Provider Name and Address Organization Details Recorded Time 520582 ibuprofen medicatio n Not available Not available Not available 06/13/2022 5640 RxNorm [facility] Reese [address] [place], [address], [place] [facility] 16:39:16 [id number] tramadol medicatio n Not available Not available Not available 06/13/2022 21456 RxNorm [facility] Reese [address] [place], [address], [place] [facility] 16:39:24 Medications Name Sig Start Date Stop Date Status Note LastModified by Organization Details LastModified Time quetiapine 25 mg tablet Take 1 tablet twice a day by oral route. active Not Available Not Available No t Available atorvastati n 40 mg tablet TAKE 1 TABLET BY MOUTH EVERY DAY active Not Available Not Available No t Available metformin 500 mg tablet TAKE TWO TABLETS IN THE MORNING AND ONE TABLET IN THE EVENING WITH FOOD active Not Available Not Available No t Available acetaminoph en 325 mg tablet TAKE 2 TABLETS BY MOUTH EVERY 6 HOURS NEEDED FOR PAIN (MILD TO MODERATE PAIN) FOR UP TO 10 DAYS. active Not Available Not Available No t Available gabapentin 600 mg tablet TAKE 1 TABLET BY MOUTH THREE TIMES A DAY active Not Available Not Available No t Available doxycycline hyclate 100 mg capsule TAKE 1 CAPSULE BY MOUTH TWICE A DAY FOR 10 DAYS active Not Available Not Available No t Available tizanidine 2 mg tablet TAKE 1 TABLET BY MOUTH EVERY 8 HOURS NEEDED FOR PAIN FOR UP TO 10 DAYS. active Not Available Not Available No t Available trazodone 50 mg tablet 06/13 completed Not Available Not Available Not Available oxybutynin chloride ER 10 mg tablet,exte nded release 24 hr TAKE 1 TABLET BY MOUTH EVERY DAY 06/13 completed Not Available Not Available Not Available fluconazole 150 mg tablet TAKE 1 TABLET BY MOUTH ONCE FOR 1 DOSE. AFTER COMPLETIO N OF METROGEL 06/13 completed Not Available Not Available Not Available albuterol sulfate 1.25 mg/3 mL solution for nebulizatio n Inhale 3 mL 3 times a day by inhalatio n route. active Not Available Not Available No t Available FreeStyle Lancets 28 gauge USE TO CHECK BLOOD SUGARS THREE TIMES DAILY FOR DM E11.9 active Not Available Not Available No t Available metronidazo le 0.75 % (37.5 mg/5 gram) vaginal gel APPLY 1 APPLICATO RFUL VAGINALLY NIGHTLY X5 NIGHTS 06/13 completed Not Available Not Available Not Available prednisone 20 mg tablet TAKE 2 TABLETS BY MOUTH EVERY DAY FOR 5 DAYS active Not Available Not Available No t Available clonazepam 0.5 mg tablet active Not Available Not Available Not Available sertraline 100 mg tablet active Not Available Not Available Not Available amlodipine 5 mg tablet TAKE 1 TABLET BY MOUTH EVERY DAY active Not Available Not Available No t Available butalbital- acetaminoph en-caffeine 50 mg-325 mg-40 mg tablet TAKE 1 TABLET BY MOUTH EVERY 6 HOURS NEEDED FOR HEADACHES active Not Available Not Available No t Available levothyroxi ne 25 mcg tablet TAKE 1 TABLET BY MOUTH EVERY DAY active Not Available Not Available No t Available losartan 100 mg-hydrochl orothiazide 25 mg tablet TAKE 1 TABLET BY MOUTH EVERY DAY active Not Available Not Available No t Available calcium 600 mg (as calcium carbonate 1,500 mg) tablet TAKE 1 TABLET BY MOUTH 2 TIMES A DAY WITH MEALS. active Not Available Not Available No t Available hydromorpho ne 2 mg tablet TAKE 1-2 TABLETS BY MOUTH TWICE A DAY NEEDED FOR PAIN 06/13 completed Not Available Not Available Not Available magnesium oxide 400 mg (241.3 mg magnesium) tablet TAKE 1 TABLET BY MOUTH EVERYDAY AT BEDTIME active Not Available Not Available No t Available doxycycline monohydrate 100 mg capsule TAKE 1 CAPSULE BY MOUTH TWICE A DAY FOR 10 DAYS active Not Available Not Available No t Available cephalexin 500 mg capsule TAKE 1 CAPSULE BY MOUTH TWICE A DAY FOR 10 DAYS 06/13 completed Not Available Not Available Not Available buspirone 10 mg tablet active Not Available Not Available Not Available Advair Diskus 250 mcg-50 mcg/dose powder for inhalation TAKE 1 PUFF BY MOUTH TWICE A DAY active Not Available Not Available No t Available docusate sodium 100 mg capsule TAKE 1 CAPSULE BY MOUTH TWICE A DAY active Not Available Not Available No t Available sertraline 25 mg tablet active Not Available Not Available Not Available omeprazole 20 mg capsule,del ayed release TAKE 1 CAPSULE BY MOUTH EVERY DAY active Not Available Not Available No t Available montelukast 10 mg tablet TAKE 1 TABLET BY MOUTH EVERYDAY AT BEDTIME active Not Available Not Available No t Available hydroxyzine HCl 25 mg tablet TAKE 1 TABLET BY MOUTH EVERY 12 HOURS NEEDED FOR ITCHING (MAY CAUSE SEDATION) FOR UP TO 10 DAYS. active Not Available Not Available No t Available mupirocin 2 % topical ointment APPLY THIN LAYER TO AREA OF ABDOMINAL RASH TWICE DAILY UNTIL HEALED 06/13 completed Not Available Not Available Not Available mirtazapine 15 mg tablet 06/13 completed Not Available Not Available Not Available letrozole 2.5 mg tablet TAKE 1 TABLET BY MOUTH EVERY DAY active Not Available Not Available No t Available fluticasone propionate 50 mcg/actuati on nasal spray,suspe nsion SPRAY 2 SPRAYS INTO EACH NOSTRIL EVERY DAY active Not Available Not Available No t Available metformin ER 500 mg tablet,exte nded release 24 hr TAKE 1 TABLET BY MOUTH EVERY DAY IN THE MORNING WITH BREAKFAST 06/13 completed Not Available Not Available Not Available clotrimazol e 1 % topical cream APPLY IN BETWEEN TOES DAILY FOR 6 WEEKS active Not Available Not Available No t Available sertraline 50 mg tablet active Not Available Not Available Not Available buspirone 15 mg tablet active Not Available Not Available Not Available oxycodone 5 mg tablet TAKE 1 TABLET BY MOUTH EVERY 6 HOURS NEEDED FOR PAIN 06/13 completed Not Available Not Available Not Available hydroxyzine pamoate 25 mg capsule 06/13 completed Not Available Not Available Not Available Vitamin D3 25 mcg (1,000 unit) tablet TAKE 1 TABLET BY MOUTH EVERY DAY active Not Available Not Available No t Available albuterol sulfate concentrate 2.5 mg/0.5 mL solution for nebulizatio n Inhale 0.5 mL 3 times a day by nebulizat ion route. 2021 active Not Available Not Available Not Avai lable ProAir HFA 90 mcg/actuati on aerosol inhaler PLEASE SEE ATTACHED FOR DETAILED DIRECTION S active Not Available Not Available No t Available quetiapine 50 mg tablet active Not Available Not Available Not Available FreeStyle Lite Strips USE TO CHECK BLOOD SUGARS THREE TIMES DAILY active Not Available Not Available No t Available Prolensa 0.07 % eye drops PLACE ONE DROP IN AFFECTED EYE NIGHTLY AT BEDTIME, DIRECTED 06/13 completed Not Available Not Available Not Available Trulicity 1.5 mg/0.5 mL subcutaneou s pen injector INJECT 1.5 MG INTO THE SKIN ONCE A WEEK. active Not Available Not Available No t Available Trulicity 0.75 mg/0.5 mL subcutaneou s pen injector INJECT 0.75 MG INTO THE SKIN ONCE A WEEK. active Not Available Not Available No t Available Vitals Date Recorded Oxygen saturation Oxygen saturation in Arterial blood by Pulse oximetry Body temperature Heart rate Respiratory rate Systolic blood pressure Diastolic blood pressure Provider Name and Address Organization Details Last Updated DateTime 2 96 % 96 % 98.5 [degF] 92 /min 20 /min 142 mm[Hg] 86 mm[Hg] Not Available [facility] 16:[facility]:16 Social History Question Answer Notes LastModified by Organizat ion Details LastModified Time Tobacco Smoking Status Former Smoker [facility] [address], [place], [address], [place] [facility] 06/13/2022 16:45:19 Do You Have An Advance Directive? No [email or web address] Information not available 06/13/2022 What Is Your Level Of Alcohol Consumption? None [email or web address] Information not available 06/13/2022 What Is Your Code Status? Full Code Information not available 06/13/2022 When Did You Quit Smoking? 6-10yearssi [email or web address] Information not available 06/13/2022 Do You Use Any Illicit Or Recreational Drugs? No [email or web address] Information not available 06/13/2022 Has Tobacco Cessation Counseling Been Provided? No [email or web address] Information not available 06/13/2022 Do You Or Have You Ever Used Any Other Forms Of Tobacco Or Nicotine? No Information not available 06/13/2022 Sex: Unknown Functional Status None recorded. Mental Status None recorded. Family History Relationship Description Onset Age of this Age Resolved Age Notes LastModified by Organization Details LastModified Time Father Diabetes mellitus Not available 06/13 16:44:55 Father Hypertensive disorder [email or web address] Not available 06/13 16:45:04 Medical History Condition Response Diabetes Y Coronary Artery Disease N CHF N Parkinson's Disease N Cancer Y Stroke N Dementia N Asthma Y Hypothyroidism Y Depression Y COPD N High Cholesterol Y Rheumatoid Arthritis N Pulmonary Embolism N Hypertension Y A-fib N Osteoporosis N Kidney Disease N Gynecological HistoryNo gynecological history recorded. Obstetrics History GPAL:G 0 P 0 0 0 0 Past Encounters Encounter ID Performer Location Encounter Start Date Encounter Closed Date Diagnosis/Indication Diagnosis SNOMED-CT Code Diagnosis ICD10 Code Diagnosis Note [id number] [facility] [address] [place] [address] 06/13/2022 16:36:56 06/14/2022 10:39:12 Community acquired pneumonia 954226420 J18.9 Health Concerns Section Related Observation LastModified by Organization Detai ls LastModified Time None Recorded Concern Status LastModified by Organization Details LastModified Time None Recorded Advance Directives Directive N: Payers Encounter Date Sequence Insurance Name Policy Number Policy Bashir Covered Member ID Bashir Member ID Guarantor Name 06/13/2022 1 [facility] [employer] Gill Tavenner [id number] Gill Tavenner Notes Date Note Type Note Provider Name and Address Organization Details Recorded Time 06/13/2022 text/html PT IS A 61 YO FEMALE NEW TO . PT STATES THAT SHE HAS HAD CHEST PAIN. PT STATES SHE TESTED POSITIVE FOR COVID. ABOUT 2 WEEKS AGO. STILL CONGESTED IN THE CHEST. COUGH IS NON PRODUCTIVE. USED MUCINEX NO CHANGE. NO FEVER OR CHILLS. EATING AND DRINKING MOVING BOWEL AND BLADDER. NO SWELLING IN LEGS. SOB WITH SIGNIFICANT COUGH. USING THE INHALER TWICE ADAY. CHEST PAIN WITH THE COUGH. CHEST PAIN IS NOT ASSOCIATED WITH ACTIVITY. [facility] [place], [address], [place] [facility] 06/13/2022 19:08:09 OBGyn Episode No OBEpisode recorded.
--- OUTSIDE RECORDS SUMMARY | 2025-03-19 11:46 | XMS_ITS | Encounter Summary ---
Author Organization [facility] Address [address] [place] [address] Care Team Providers Care Systems Architecture Analyst Name Role Phone Hosea Galvan MD Primary Care Provider [phone] Reason for Visit * Reason Comments Diabetes Encounter Details Date Type Department Care Team (Late st Contact Info) Description 03/15/2025 9:20 AM EDT Office Visit Endocrinology - [place] [address] [place] [address] Zohra Ryan PA [address] [place] [address] Type 2 diabetes mellitus with other diabetic kidney complication, without long-term current use of insulin (CMS/HCC V24, CMS/HCC V28) (Primary Dx); Hypothyroidism, unspecified type; Microalbuminuria; Essential hypertension Social History Tobacco Use Types Packs/Day Years [...] on file Sexual Orientation Not on file documented as of this encounter Last Filed Vital Signs Vital Sign Reading [...] Mass Index 36.84 03/15/2025 9:24 AM EDT documented in this encounter Ordered Prescriptions Prescription Sig Dispense Quantity Refills Last Filled Start Date End Date dulaglutide (Trulicity) 4.5 mg/0.5 mL pen injector injectionIndication s:Type 2 diabetes mellitus with other diabetic kidney complication, without long-term current use of insulin (CMS/[facility] V24, CMS/HCC V28) Use 4.5mg once weekly 2 mL 6 03/15/2025 documented in this encounter Progress Notes * Michelle Burns MA - 03/15/2025 9:20 AM EDT BS - 140 - per PT - Fasting * GUME Plunkett - 03/15/2025 9:20 AM EDT CHIEF COMPLAINT: Diabetes IDENTIFIER: Gill Mtz is a 64 y.o. old female HPI: Patient is a 64-year-old female presents today for diabetes follow up. History of hypertension, hyperlipidemia, GERD, IBS, history of breast cancer, bipolar disorder. With cataracts and carpal tunnel syndrome. Diagnosed with type 2 diabetes a few years ago. Family history includes father who is insulin-dependent, and paternal nieces and nephews. Denies any hospitalization as a result of diabetes. With cataracts status post repair. Current diabetic regimen: Metformin 500 mg 2 tablets twice daily. Trulicity 3 mg once weekly Has not used insulin in the past. Fasting sugars are generally in the 130s to 140s. This morning at 140 Denies any hypoglycemic episodes. A1c 7.3% Up-to-date on eye exam. Microalbumin urine test (-) No polyuria, no polydipsia, no nausea vomiting or abdominal pain. Patient has been following a diabetic friendly diet, eats a low-carb meal. Active during the day. Takes gabapentin for neuropathy. With hypothyroidism, on levothyroxine. Taking it faithfully. Lab Results Component Value Date TSH 2.06 01/15/2025 Hypertension treated with Hyzaar and amlodipine. Blood pressure 104/64 Hyperlipidemia treated with atorvastatin 40 mg once daily. History of elevated alkaline phosphatase level, stable. Previous labs show normal PTH, vitamin D, GGT and bone alkaline phosphatase level. Lab Results Component Value Date HGBA1C 7.3 (H) 01/15/2025 ROS: GENERAL: No malaise HEENT: No changes in hearing or vision RESPIRATORY: No cough, wheezing or shortness of breath CARDIOVASCULAR: No chest pain, leg swelling or palpitations GI: No abdominal discomfort ENDO: see HPI NEURO: No persistent headache, syncope PAST MEDICAL HISTORY: Patient Active Problem List Diagnosis Date Noted Incontinence 08/04/2024 Cervical spondylosis 06/02/2024 COVID 06/05/2022 Chest pain 05/16/2022 Inferior myocardial infarction ([facility] V24, [facility] V28) 05/14/2022 Diabetic cataract of both eyes ([facility] V24, [facility] V28) 05/30/2021 Lumbar degenerative disc disease 04/20/2021 Spinal stenosis of lumbar region 04/20/2021 DM (diabetes mellitus), type 2 with neurological complications ([facility] V24, [facility] V28) 01/05/2020 GERD (gastroesophageal reflux disease) 01/05/2020 Microalbuminuria 01/05/2020 OAB (overactive bladder) 01/05/2020 Venous insufficiency of both lower extremities 01/05/2020 Malignant neoplasm of overlapping sites of left breast in female, estrogen receptor positive ([facility] V24, [facility] V28) 08/17/2019 Hypothyroidism 08/20/2018 Breast cancer, stage 1, left ([facility] V24, [facility] V28) 03/13/2018 Carpal tunnel syndrome 08/29/2017 Essential hypertension 04/26/2017 DM (diabetes mellitus), type 2 with renal complications ([facility] V24, [facility] V28) 11/07/2016 Vitamin D deficiency 10/02/2015 Asthmatic bronchitis , chronic ([facility] V24, [facility] V28) 08/23/2014 IBS (irritable bowel syndrome) 02/28/2011 Osteoarthritis 08/07/2010 Intestinal metaplasia of gastric mucosa 07/13/2010 Chronic low back pain 03/11/2007 Hypercholesterolemia 08/29/2006 Bipolar disorder ([facility] V24, [facility] V28) 11/14/2005 Past Surgical History: Procedure Laterality Date BACK SURGERY 03/16/2014 PROCEDURE: HISTORICAL BACK SURGERY; COMMENT: 2015 L4-5 fusion BACK SURGERY 08/09/2021 PROCEDURE: HISTORICAL BACK SURGERY; COMMENT: By Dr. Rafa Ramirez - L3-4 discectomy, arthrodesis and implantation cage through an anterolateral, retroperitoneal approach; L3-4 posterior lateral fusion; L3-4 pedicle screw fixation; osteoamp BLADDER SUSPENSION 11/26/2011 PROCEDURE: HISTORICAL BLADDER SUSPENSION; COMMENT: Dr Alvarado BREAST BIOPSY Left 03/07/2018 PROCEDURE: BX BREAST; PERC NEEDLE CORE W/IMAG GUID; COMMENT: Core biopsy BREAST LUMPECTOMY Left 03/25/2018 PROCEDURE: HISTORICAL BREAST LUMPECTOMY; COMMENT: & [place] node biopsy, f/b RAD,CHEMO, & Letrozole CARPAL TUNNEL RELEASE Left 11/2019 PROCEDURE: HISTORICAL CARPAL TUNNEL REL COLONOSCOPY 06/01/2010 PROCEDURE: HISTORICAL COLONOSCOPY; COMMENT: Normal colon exam. Repeat 10 yrs COLONOSCOPY 06/14/2020 PROCEDURE: HISTORICAL COLONOSCOPY; COMMENT: negative FOOT SURGERY 02/2013 PROCEDURE: HISTORICAL FOOT SURGERY; COMMENT: bunion surgery and hammertoe R foot FOOT SURGERY Right 06/16/2021 PROCEDURE: HISTORICAL FOOT SURGERY; COMMENT: repair 3rd toe contracture KNEE SURGERY Left 12/28/2010 PROCEDURE: HISTORICAL KNEE SURGERY NECK SURGERY 07/23/2024 PROCEDURE: HISTORICAL NECK SURGERY; COMMENT: C5-6 ACDF, Dr. Barron NECK SURGERY 2023 OTHER SURGICAL HISTORY 01/26/2013 PROCEDURE: HISTORY OTHER; COMMENT: Dr. Alvarado - Sacral nerve modulation electrode placement for urinary incontinence UPPER GASTROINTESTINAL ENDOSCOPY 07/11/2010 PROCEDURE: MA UPPER GI ENDOSCOPY PERFORMED; COMMENT: Normal esophagus, erosive gastritis-biopsy:reactive gastropathy (healing ulcer) with focal intestinal metaplasia(HPylori-), normal duodenum. Repeat 07/11/2015 VENTRAL HERNIA REPAIR Left paramedian incisional hernia repair - probably from anterior-approach lumbar surgery. she believes mesh was used WRIST SURGERY Left 07/09/2019 PROCEDURE: HISTORICAL WRIST SURGERY; COMMENT: & L thumb release SOCIAL HISTORY: Social History Tobacco Use Smoking status: Former Current packs/day: 0.00 Average packs/day: 0.3 packs/day for 35.0 years (8.8 ttl pk-yrs) Types: Cigarettes Start date: 11/18/1975 Quit date: 11/18/2010 Years since quittin.3 Smokeless tobacco: Never Substance Use Topics Alcohol use: Not Currently FAMILY HISTORY: Family History Problem Relation Name Age of Onset CABG Mother after surgery Colon cancer Father Heart attack Brother Breast cancer Neg Hx Ovarian cancer Neg Hx Family Status Relation Name Status Mother Father Brother (Not Specified) Neg Hx (Not Specified) No partnership data on file MEDICATIONS DISCONTINUED/REORDERED: Medications Discontinued During This Encounter Medication Reason aluminum-magnesium hydroxide-simethicone (MAALOX) 200-200-20 mg/5 mL suspension Ineffective betamethasone valerate (VALISONE) 0.1 % ointment Therapy completed dulaglutide (Trulicity) 3 mg/0.5 mL pen injector injection ACTIVE MEDICATIONS: Outpatient Medications Marked as Taking for the 03/15/25 encounter (Office Visit) with GUME Plunkett Medication Sig Dispense Refill albuterol 2.5 mg /3 mL (0.083 %) nebulizer solution INHALE THE CONTENTS OF 1 VIAL VIA NEBULIZER EVERY 4-6 HOURS NEEDED FOR WHEEZING albuterol HFA (PROAIR HFA ; PROVENTIL HFA ; VENTOLIN HFA) 90 mcg/actuation inhaler Inhale 2 puffs by mouth every 4 (four) hours if needed for wheezing. 6.7 g 0 amLODIPine (NORVASC) 5 mg tablet Take 1 tablet (5 mg total) by mouth 1 (one) time each day. 90 tablet 0 atorvastatin (LIPITOR) 80 mg tablet TAKE 1 TABLET BY MOUTH EVERY DAY 90 tablet 1 blood sugar diagnostic (FreeStyle Lite Strips) test strip USE TO CHECK BLOOD SUGARS THREE TIMES DAILY blood-glucose meter (FREESTYLE LITE METER [facility]) E11.29. Use to check blood sugar daily for DM budesonide (Pulmicort Flexhaler) 90 mcg/actuation inhaler Inhale 1 puff by mouth 2 (two) times a day. 1 each 2 busPIRone (BUSPAR) 15 mg tablet Take 1 Tablet by mouth 3 times daily. jktwodmugk-ooclmcvfckdzk-felfaews (FIORICET, ESGIC) 50-325-40 mg per tablet Take 1 Tablet by mouth every 6 hours as needed for Headaches. calcium carbonate 1,500 mg (600 mg elemental calcium) tablet TAKE 1 TABLET BY MOUTH 2 TIMES A DAY WITH MEALS. celecoxib (CeleBREX) 100 mg capsule Take 1 Capsule by mouth 2 times daily. cetirizine (ZyrTEC) 10 mg tablet Take 1 tablet (10 mg total) by mouth 1 (one) time each day. 90 tablet 1 cholecalciferol (VITAMIN D-3) 25 mcg (1,000 unit) tablet TAKE 1 TABLET BY MOUTH EVERY DAY clonazePAM (KlonoPIN) 0.5 mg tablet as needed. cyclobenzaprine (FLEXERIL) 10 mg tablet Take 1 Tablet by mouth 3 times daily as needed. diclofenac (VOLTAREN) 1 % topical gel APPLY 1 G TOPICALLY TWICE A DAY 50 g 1 docusate sodium (COLACE) 100 mg capsule Take 1 capsule (100 mg total) by mouth if needed. FreeStyle Lancets 28 gauge lancets USE TO CHECK BLOOD SUGARS THREE TIMES DAILY 300 each 3 FREESTYLE LANCETS MISC USE TO CHECK BLOOD SUGARS THREE TIMES DAILY ipratropium (ATROVENT) 21 mcg (0.03 %) nasal spray 2 Sprays by Nasal route every 12 hours. levothyroxine (SYNTHROID, LEVOTHROID) 25 mcg tablet Take 1 tablet (25 mcg total) by mouth 1 (one) time each day. 90 tablet 0 losartan-hydroCHLOROthiazide (HYZAAR) 100-25 mg per tablet Take 1 tablet by mouth 1 (one) time eachday. 90 tablet 0 melatonin 5 mg tablet, sublingual Take 1 tablet by mouth at bedtime as needed. metFORMIN (GLUCOPHAGE) 500 mg tablet TAKE 2 TABLETS BY MOUTH TWICE A DAY WITH MEALS montelukast (SINGULAIR) 10 mg tablet TAKE 1 TABLET BY MOUTH EVERYDAY AT BEDTIME 90 tablet 0 multivitamin tablet Take 1 tablet by mouth 1 (one) time each day. nystatin (MYCOSTATIN) 100,000 unit/gram powder Apply topically 2 (two) times a day. As needed for candidal skin infection. 60 g 0 omega 0-nze-cie-fish oil (Fish OiL) 1,000 (120-180) mg capsule pantoprazole (PROTONIX) 40 mg EC tablet Take 1 tablet (40 mg total) by mouth 2 (two) times a day. Take thyroid medication in early am. Then take the protonix on empty stomach, wait 30 mins and then eat to activate the medication- before breakfast and supper 60 each 11 QUEtiapine (SEROquel) 50 mg tablet Take 1 tablet (50 mg total) by mouth at bedtime. sertraline (ZOLOFT) 100 mg tablet Take 1 tablet (100 mg total) by mouth 1 (one) time each day. solifenacin (VESICARE) 5 mg tablet Take 1 tablet (5 mg total) by mouth 1 (one) time each day. Swallow tablet whole; do not crush, chew, or split. 30 each 2 topiramate (TOPAMAX) 50 mg tablet Take 1 Tablet by mouth 2 times daily. [DISCONTINUED] aluminum-magnesium hydroxide-simethicone (MAALOX) 200-200-20 mg/5 mL suspension Take30 mL by mouth 4 (four) times a day (before meals and nightly). 769 mL 11 [DISCONTINUED] dulaglutide (Trulicity) 3 mg/0.5 mL pen injector injection Inject 0.5 mL (3 mg total) under the skin every 7 (seven) days. 6 mL 2 ALLERGIES: Tramadol PHYSICAL EXAM: Blood pressure 104/64, pulse 80, temperature 36.2 ??C (97.2 ??F), temperature source Temporal, height 1.549 m (61 ), weight 88.5 kg (195 lb), SpO2 96%. Body mass index is 36.84 kg/m??. BMI is greaterthan 25.0 (above the normal range) - see Plan APPEARANCE: Alert and in no acute distress HEART: RRR LUNG: clear to auscultation NEURO: Awake, alert Wt Readings from Last 5 Encounters: 03/15/25 88.5 kg (195 lb) 02/17/25 88 kg (194 lb) 02/09/25 88 kg (194 lb) 01/13/25 89 kg (196 lb 3.2 oz) 12/15/24 89.4 kg (197 lb) LABS: Lab Results Component Value Date HGBA1C 7.3 (H) 01/15/2025 HGBA1C 6.8 (H) 11/12/2024 HGBA1C 7.1 (A) 07/03/2024 Lab Results Component Value Date MICROALBUR 17.2 01/15/2025 LDLCALC 85 01/15/2025 CREATININE 0.93 01/15/2025 MICROALBCREA 12 01/15/2025 Lab Results Component Value Date GLUCOSE 191 (H) 01/15/2025 IMAGING: IMPRESSION: 1. Type 2 diabetes mellitus with other diabetic kidney complication, without long-term current use of insulin ([facility] V24, [facility] V28) 2. Hypothyroidism, unspecified type 3. Microalbuminuria 4. Essential hypertension PLAN: Diabetes complicated by microalbuminuria: A1c 7.3%. Continue with metformin For additional weight loss benefit, Trulicity increased to 4.5mg once weekly Check A1c in one month Continue checking sugars at least once a day at home. Diet and exercise. BMI 36.84 Approaches towards weight loss are discussed, including burning more calories than one takes in by frequent, small meals, portion control and avoiding eating before bedtime. Hypothyroidism TSH normal, on levothyroxine. Microalbuminuria--recent test negative. BP reasonable. On amlodipine, hydrochlorothiazide/lisinopril. On statin. Low-fat diet. Stable Alk Phos level. PCP ordered recheck on potassium, encouraged her to go to lab. Return in 6 months for reevaluation complete labs before appointment. Medication and lab orders: Orders Placed This Encounter Procedures Hemoglobin A1c Hemoglobin A1c None GUME Anthony on 03/15/2025 at 10:08 AM EDT documented in this encounter Plan of Treatment Upcoming Encounters Date Type Department Care Team (Late st Contact Info) Description 03/29/2025 2:30 PM EDT Office Visit Urogynecology - [address] [phone] Maylin Fraga MD [address] [place] [address] [address] [place] [address] 05/20/2025 9:20 AM EDT [facility] [address] [place] [address] Mai Garcia MD [address] [address] 05/20/2025 10:00 AM EDT Office Visit [facility] Hematology Oncology [address] [place] [phone] Hitesh Terrazas MD [address] [place] [phone] 07/14/2025 4:00 PM EDT Office Visit Internal Medicine - [facility] [address] [place] [address] Hosea Galvan MD [address] [place] [address] 10/05/2025 9:40 AM EST Office Visit Endocrinology - [place] [phone] [place] [address] Zohra Ryan PA [address] [place] [address] Scheduled Orders Name Type Priority Associated Diagnoses Orde r Schedule Hemoglobin A1c Lab Routine Type 2 diabetes mellitus with other diabetic kidney complication, without long-term current use of insulin ([facility] V24, [facility] V28) Expected: 04/14/2025, Expires: 03/15/2026 Hemoglobin A1c Lab Routine Type 2 diabetes mellitus with other diabetic kidney complication, without long-term current use of insulin ([facility] V24, [facility] V28) Expected: 09/14/2025, Expires: 03/15/2026 documented as of this encounter Visit Diagnoses Diagnosis Type 2 diabetes mellitus with other diabetic kidney complication, without long- term current use of insulin ([facility] V24, [facility] V28)- Primary Hypothyroidism, unspecified type Microalbuminuria Proteinuria Essential hypertension Unspecified essential hypertension documented in this encounter Discontinued Medications Medication Sig Discontinue Reason Start Date End Da te aluminum-magnesium hydroxide-simethicone (MAALOX) 200-200-20 mg/5 mL suspension Take 30 mL by mouth 4 (four) times a day (before meals and nightly). Ineffective 12/15/2024 03/15/2025 betamethasone valerate (VALISONE) 0.1 % ointment Apply to affected area twice daily for 2 weeks Therapy completed 05/07/2024 03/15/2025 dulaglutide (Trulicity) 3 mg/0.5 mL pen injector injection Inject 0.5 mL (3 mg total) under the skin every 7 (seven) days. 11/13/2024 03/15/2025 documented as of this encounter Care Teams Systems Architecture Analyst Relationship Specialty Start Date End Date Hosea Galvan MD [address] [place] [phone] PCP - General Internal Medicine 08/02/21 documented as of this encounter
--- OUTSIDE RECORDS SUMMARY | 2025-03-19 11:46 | XMS_ITS | Encounter Summary ---
Author Organization [facility] [place] [address] Care Team Providers Care Facilities Operations Technician Name Role Phone Hsoea Galvan MD Primary Care Provider [phone] Encounter Details Date Type Department Care Team (Late Contact Info) Description 09/16/2024 10:15 AM EDT Hospital Encounter TH HISTORIC ENCOUNTERS EASTERN CONVERSION ONLY Hitesh Terrazas MD [address] [place] [phone] Social History Tobacco Use Types Packs/Day Years Used Date Smoking Tobacco: Former Cigarettes 0.3 35 0 11/18/1975 - 11/18/2010 Smokeless Tobacco: Never Alcohol Use Standard Drinks/Week Comments Not Currently 0 (1 standard drink = 0.6 oz pur e alcohol) Comments No Sex and Gender Information Value Date Recorded Sex Assigned at Not on file Legal Sex Female 7:57 AM EST Gender Identity Not on file Sexual Orientation Not on file documented as of this encounter Plan of Treatment Upcoming Encounters Date Type Department Care Team (Late Contact Info) Description 03/29/2025 2:30 PM EDT Office Visit Urogynecology [address] [phone] Maylin Fraga MD [address] [facility] [address] [place] [address] 05/20/2025 9:20 AM EDT Office Visit [facility] [place] [address] [facility] [address] [place] [phone] Mai Garcia MD 271 [facility] [address] [place] [address] 05/20/2025 10:00 AM EDT Office Visit [facility] Hematology Oncology [address] [place] [phone] Hitesh Terrazas MD [address] [place] [phone] 07/14/2025 4:00 PM EDT Office Visit Internal Medicine - [facility] [address] [place] [address] Hosea Galvan MD [address] [place] [address] 10/05/2025 9:40 AM EST Office Visit Endocrinology - [place] [address] [place] [phone] Zohra Ryan PA [address] [place] [address] documented as of this encounter Visit Diagnoses Not on filedocumented in this encounter Care Teams Facilities Operations Technician Relationship Specialty Start Date End Date Hosea Galvan MD [address] [place] [phone] PCP - General Internal Medicine 08/02/21 documented as of this encounter
--- OUTSIDE RECORDS SUMMARY | 2025-03-19 11:46 | XMS_ITS | Encounter Summary ---
Author Organization [facility] [place] [address] Care Team Providers Care Product Management Manager Name Role Phone Hosea Galvan MD Primary Care Provider [phone] Encounter Details Date Type Department Care Team (Late st Contact Info) Description 09/16/2024 10:03 AM EDT Hospital Encounter TH HISTORIC ENCOUNTERS [facility] ONLY Hitesh Terrazas MD [address] [place] [phone] Social History Tobacco Use Types Packs/Day Years [...] Blood Pressure 140/77 09/16/2024 10:17 AM EDT Sitting Right arm Pulse 78 09/16/2024 10:17 AM EDT Temperature - - Respiratory Rate - - Oxygen Saturation - - Inhaled Oxygen Concentration - - Weight 87.9 kg (193 lb 12.8 oz) 09/16/2024 10:17 AM EDT Height 157.5 cm (5' 2 ) 09/16/2024 10:1 7 AM EDT Body Mass Index 35.45 09/16/2024 10:17 AM EDT documented in this encounter Progress Notes * Hitesh Terrazas MD - 09/16/2024 10:15 AM EDT Diagnosis/treatment: Left-sided stage II T1cN1 invasive ductal and lobular breast cancer, ER/MT- positive, HER2-negative diagnosed in 2018. The patient underwent lumpectomy and sentinel node biopsy on 03/25/2018. She completed adjuvant TC x4 cycles with Neulasta support. She completed adjuvant breast radiation on 10/05/2018. She started adjuvant letrozole in mid-09/2018 and completed 5 years. Interval history: The patient is a 64-year-old female who presented in 2018 with an abnormal screening mammogram which showed a spiculated 0.9 cm subareolar mass at 8:00 to 9:00. She underwent a core biopsy of the mass which revealed an invasive carcinoma with ductal and lobular features, ER/MT-positive, [id number]-[id number]-ihawarex, Ki-67-high. She underwent an excisional biopsy and sentinel lymph node biopsy on 03/25/[address] Souza and the pathology revealed a 1.6 cm grade 2 invasive carcinoma with ductal and lobular features. LVI was present. 1 of 3 sentinel nodes was involved with a 1.0 cm metastatic deposit. There was extranodal extension. A MammaPrint assay showed a high risk of recurrence. She completed adjuvant TC chemotherapy x4 cycles. She had difficulty with severe fatigue. She had difficulty with constipation. She had difficulty with back pain due to Neulasta. 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 She developed an intermittent painful peripheral neuropathy in her hands in late 2020, which persists. She took [id number] mg 3 times daily with modest benefit. She self-discontinued the gabapentin. She completed adjuvant breast radiation. She developed acute dyspnea on exertion in mid-07/2018 and presented to the [facility] ER on 08/06/2018.. A chest CT angiogram on 08/06/2018 showed no pulmonary embolism and was otherwise unremarkable. Bilateral lower extremity Doppler ultrasound on 08/06/2018 showed no DVT. A myocardial perfusion test on 08/08/2018 was negative for ischemia. The dyspnea on exertion resolved resolved without intervention. She denied baseline hot flashes. She denied any history of thrombosis. She reports a history of osteoarthritis in her hands, lumbar spine, and left knee. A DEXA bone density scan on 10/01/2018 showednormal bone density. She tolerated letrozole reasonably well. She reported occasional night sweats, which lessened off letrozole. She reports infrequent headaches, relieved by Tylenol or Aleve. She reported worsening of hand arthralgias, partially relieved by Tylenol as needed, which persist. She developed a left firstfinger trigger finger. She underwent a trigger release in early 2019. She is compliant with self exams and reports no concerns. She is compliant with mammograms. A mammogram on 10/16/2022 showed suspicious microcalcifications in the retroareolar region of the left breast. She underwent a stereotactic core biopsy of the region on 10/17/2022 and the pathology revealed benign findings. Her last mammogram in 06/2024 was read as benign. She developed worsened daily headaches, which started in the frontal head and progress over the topof her head to her neck, in early 02/2020. Her PCP prescribed butalbital, which provides partial relief. A brain CT with contrast on 10/24/2020 was unremarkable. She has developed gradually worsening lumbar back pain since 2019. She has had multiple imaging studies to evaluate neck, lumbar back, and bilateral hip pain. A lumbar spine CT without contrast on 08/24/2020 showed DJD and disc disease, including an L3-L4 disc bulge with mass-effect on the exiting right nerve root and moderate neural foramen narrowing at L4-L5 with mass-effect on the exiting left nerve root by endplate spurring. Bilateral hip x-rays on 11/01/2020 were unremarkable. A neck CT without contrast on 12/29/2020 showed moderate C5-C6 spondylosis. She developed constant left lateral lower thoracic burning pain in mid-06/2022, which has lessened modestly without intervention and is currently intermittent. She took gabapentin 1200 mg 3 times daily with modest benefit.. She is self- discontinue the gabapentin. She reported awareness of soft tissue swelling in the region of the pain. A bone scan 07/17/2022 was unremarkable. A chest CT without contrast on 07/27/2022 was unremarkable. She underwent an anterior cervical fusion on 07/23/[address] Barron. She developed intermittent epigastric pain in 06/2024. She remains on Prilosec long-term. She denies visual changes. She denies cough, hemoptysis, or dyspnea on exertion. She denies unusualbone pain. She reports a stable appetite and weight. Review of systems: The remainder of a 10 point review of systems was unremarkable. Physical examination: HEENT: Sclerae anicteric, normal oropharyngeal membrane. Neck: No lymphadenopathy. Lungs: Clear to auscultation. Chest: Point tenderness over the left lateral lower thoracic rib cage. Heart: No murmurs. Breasts: No suspicious skin changes or masses bilaterally, no axillary lymphadenopathy bilaterally. Abdomen: Soft, nontender, no organomegaly or masses. Extremities: No edema. Skin: No rash. Neurologic: Normal gait. Assessment/plan: The patient is a 64-year-old female who presented in 2017 with a left-sided stage II T1N1 invasive ductal and lobular breast cancer, ER/MT-positive, [id number]. She underwent lumpectomy and sentinel lymph node biopsy on 03/25/2018. A Mamma print assay showed a high risk of recurrence. She completed adjuvant TC chemotherapy x4 cycles and tolerated therapy reasonably well despite severe fatigue, constipation, back pain due to Neulasta, and a painful peripheral neuropathy following completion ofchemotherapy. 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 She developed an intermittent painful peripheral neuropathy in her hands in late 2020, which persists. She took gabapentin 600 mg 3 times daily with modest benefit. She self-discontinued the gabapentin. She completed adjuvant breast radiation. She tolerated letrozole reasonably well. She reported occasional night sweats, which lessened off letrozole. She reports infrequent headaches, relieved by Tylenol or Aleve. She reported worsening of hand arthralgias, partially relieved by Tylenol as needed, which persist. She developed a left firstfinger trigger finger. She underwent a trigger release in early 2019. She has a painful peripheral neuropathy in her feet following chemotherapy and developed an intermittent painful peripheral neuropathy in her hands in late 2020. She took gabapentin 1200 mg 3 times daily, which provided partial relief. She developed worsened daily headaches in early 02/2020. Her PCP prescribed butalbital, which provides partial relief. A brain CT with contrast on 10/2020 was unremarkable. She developed constant left lateral lower thoracic burning pain in mid-06/2022, possibly a left thoracic radicular neuritis or chronic postoperative pain. She reports awareness of soft tissue swellingin the region of the pain. A bone scan in late 06/2022 was unremarkable. A chest CT in early 07/2022 was unremarkable. She took gabapentin 1200 mg 3 times daily, which provided modest benefit. She self-discontinued the gabapentin. She underwent an anterior cervical fusion on 07/23/2024. She developed intermittent epigastric pain in 06/2024. She remains on Prilosec long-term. I ordered an A/P CT. We will consider referral to GI. She is compliant with self exams and mammograms. There is no strong clinical evidence of recurrent breast cancer. documented in this encounter Plan of Treatment Upcoming Encounters Date Type Department Care Team (Late Contact Info) Description 03/29/2025 2:30 PM EDT Office Visit Urogynecology [address] [phone] Maylin Fraga MD [address] [facility] [address] [place] [address] 05/20/2025 9:20 AM EDT Office Visit [facility] [address] [facility] [address] [place] [address] Mai Garcia MD [address] [facility] [address] [place] [address] 05/20/2025 10:00 AM EDT Office Visit [facility] Hematology Oncology [address] [place] [phone] Hitesh Terrazas MD [address] [place] [address] 07/14/2025 4:00 PM EDT Office Visit Internal Medicine - [address] [phone] Hosea Galvan MD [address] [place] [phone] 10/05/2025 9:40 AM EST Office Visit Endocrinology - [place] [address] [place] [address] Zohra Ryan PA [address] [place] [address] documented as of this encounter Visit Diagnoses Not on filedocumented in this encounter Care Teams Product Management Manager Relationship Specialty Start Date End Date Hosea Galvan MD [address] [place] [address] PCP - General Internal Medicine 08/02/21 documented as of this encounter
== END 2025-03-19 11:28 | disposition home or self-care (01) ==
LOC: HO.HSMS 10:38
PROVIDERS: PCP Internal Medicine; Visit Provider Nurse Practitioner Family
DX: G44.219 Episodic tension-type headache, not intractable (principal); G44.86 Cervicogenic headache; M47.812 Spondylosis without myelopathy or radiculopathy, cervical region; M79.18 Myalgia, other site
CPT/HCPCS: 99214

== ENCOUNTER → 2025-03-19 10:37 | Outpatient (BNVA) | payer OTHER, SELFPAY | PROVIDERS: PCP Internal Medicine; Visit Provider Nurse Practitioner Family | DX: G44.219 Episodic tension-type headache, not intractable (principal); G44.86 Cervicogenic headache; M47.812 Spondylosis without myelopathy or radiculopathy, cervical region; M79.18 Myalgia, other site | CPT/HCPCS: 99212 ==